=== PATIENT | female | born 1965 | race Caucasian/White ===

== ENCOUNTER 2024-06-23 20:18 | Emergency (ER) | payer OTHER ==
--- OUTSIDE RECORDS SUMMARY | 2024-06-23 20:24 | XMS REPORT | Continuity of Care Document ---
Author Name Unknown Address [address] [facility] [address]. [address] [place] [address] [facility] Address [address] [facility]. [address] [place] [address] Care Team Providers Care Type Casting Machine Operator Name Role Phone PCP, PATIENT DOES NOT HAVE A Primary Care Physic marci Unavailable SYSTEM, PROVIDER NOT IN Attending Clinician Unav ailable ALINA LAGUNAS Attending Clinician WILIAN Espinosa Attending Clinician Unavailable WING CORRAL Attending Clinician Unavailable CARMELA ÁLVAREZ Attending Clinician Unavailable JANNET BANG Attending Clinician UnavailDINO Flores Attending Clinician Unav ailable CASTRO HO Attending Clinician Unavailable TORI VALENTINE Attending Clinician Unavailable BHAVIN HERNANDES Attending Clinician Unavailable DIONE SOTO Attending Clinician Unavaila MELLISSA Brooks Attending Clinician Unavail able SHIRLEY MILLER Attending Clinician Unavailable CAMACHO COONEY Attending Clinician Unavailable LAURI JANSEN Attending Clinician UnavailJENNIFFER Herron Attending Clinician UnavailJAME Luu Attending Clinician Unavailable EVERETTE VALENZUELA Attending Clinician Unavailab YURI Reddy Attending Clinician Unavaila DYLAN Patel Attending Clinician Un available MILAN OSUNA Attending Clinician Unavailable AMINA BARRY Attending Clinician Unavailab ANGELIA Calles Attending Clinician UnavailKAYE Vizcarra Attending Clinician Unavailable CHARITO_Jody Attending Clinician Unavailab Maryanne Rothman Attending Clinician [phone] MARIELA RIVERAURIEL ASH Attending Clinician UnavailADAN Guardado Attending Clinician Unavailable MIHAEAL LEBLANC Attending Clinician Unavailable FEMI SEXTON Attending Clinician UnavailJANETTE Rogers Attending Clinician UnavailALINA Quinn Admitting Clinician Johnathan barajas [id number] Admitting Clinician UnavailCARMELA Villa Admitting Clinician Unavailable JANETTE DAVIDSON Admitting Clinician Unavaildesiree yusuf Payers Payer Name Policy Type Policy Number Effective Date [place]ati on Date [place] [facility] [id number]00 [place]IC[place] PART A AND B [id number] 2016 00:00:00 AETNA (POS) [id number] 2013 00:00:00 MEDICARE B-[place]: [employer] [id number] 2016 00:00:00 MEDICARE PART A \T\ B [id number] 2016 00:00[place]00 [place] [facility] [id number] 00:[place]00 Allergies, Adverse Reactions, Alerts Allergy Name Allergy Type Status Severity Reaction(s) Onset Date Inactive Date Treating Clinician Comments Source [facility] Active Low Hives 08-25 00:00: 00 MD Mine milligan [facility] Active Low Hives 08-25 00:00: 00 MD Mine milligan [facility] Active Low Hives 08-25 00:00: 00 MD [facility] mill[facility] Active Low Hives 08-25 00:00: 00 MD [facility]GR[facility]I Active Low Hives 08-25 00:00: 00 MD [facility] mill[facility] Active Low Hives 08-25 00:00: 00 MD [facility] Active Low Hives 08-25 00:00: 00 MD [facility] Active Low Hives 08-25 00:00: 00 MD [facility] Active Low Hives 08-25 00:00: 00 MD [facility] Active Low Hives 12 00:00: 00 MD [facility] Active Low Hives 0 12 00:00: 00 MD [facility] Active Low Hives 0 08-25 00:00: 00 MD Mine mill[facility] Active Low Hives 0 08-25 00:00: 00 MD Mine milligan [facility] Active Low Hives 0 08-25 00:00: 00 MD [facility] mill[facility] Active Low Hives 0 08-25 00:00: 00 MD Mine milligan [facility] Active Low Hives 0 08-25 00:00: 00 MD Mine milligan [facility] Active Low Hives 0 08-25 00:00: 00 MD Mine milligan [facility] Active Low Hives 0 08-25 00:00: 00 MD Mine milligan [facility]GR[facility]I Active Low Hives 0 08-25 00:00: 00 MD Mine milligan [facility]GR[facility]I Active Low Hives 0 08-25 00:00: 00 MD Mine milligan [facility]GR[facility]I Active Low Hives 0 08-25 00:00: 00 MD Mine milligan [facility] Active Low Hives 0 08-25 00:00: 00 MD Mine milligan [facility] Active Low Hives 0 08-25 00:00: 00 MD Mine milligan [facility] Active Low Hives 0 08-25 00:00: 00 MD Mine milligan [facility] Active Low Hives 0 08-25 00:00: 00 MD Mine mill[facility]GR[facility]I Active Low Hives 0 08-25 00:00: 00 MD Mine mill[facility] Active Low Hives 0 08-25 00:00: 00 MD [facility] mill[facility] Active Low Hives 0 08-25 00:00: 00 MD [facility] mill[facility] Active Low Hives 0 08-25 00:00: 00 MD [facility] mill[facility] Active Low Hives 0 08-25 00:00: 00 MD Mine milligan [facility] Active Low Hives 0 212 00:00: 00 MD Mine milligan [facility] Active Low Hives 0 12 00:00: 00 MD Mine milligan [facility] Active Low Hives 0 08-25 00:00: 00 MD Mine milligan [facility] Active Low Hives 0 08-25 00:00: 00 MD [facility] Active Low Hives 0 08-25 00:00: 00 MD Mine milligan [facility]GR[facility] Active Low Hives 0 08-25 00:00: 00 MD Mine milligan [facility] Active Low Hives 0 08-25 00:00: 00 MD [facility] mill[facility] Active Low Hives 0 08-25 00:00: 00 MD [facility] mill[facility]GR[facility] Active Low Hives 0 08-25 00:00: 00 MD [facility] mill[facility]GR[facility] Active Low Hives 0 08-25 00:00: 00 MD [facility] mill[facility] Active Low Hives 0 08-25 00:00: 00 MD Mine milligan [facility]GR[facility] Active Low Hives 0 08-25 00:00: 00 MD Mine milligan [facility]GR[facility] Active Low Hives 0 08-25 00:00: 00 MD Mine milligan [facility] Active Low Hives 0 08-25 00:00: 00 MD Mine milligan [facility]GR[facility]I Active Low Hives 0 08-25 00:00: 00 MD Mine milligan [facility]GR[facility]I Active Low Hives 0 08-25 00:00: 00 MD Mine milligan [facility]GR[facility] Active Low Hives 0 08-25 00:00: 00 MD Mine milligan [facility]GR[facility] Active Low Hives 0 08-25 00:00: 00 MD Mine milligan [facility]GR[facility]I Active Low Hives 0 08-25 00:00: 00 MD Mine milligan [facility]GR[facility]I Active Low Hives 0 08-25 00:00: 00 MD Mine milligan [facility] INGR[facility]I Active Low Hives 0 08-25 00:00: 00 MD Mine milligan [facility] Active Low Hives 0 212 00:00: 00 MD Mine milligan [facility] Active Low Hives 0 08-25 00:00: 00 MD Mine milligan [facility] Active Low Hives 0 08-25 00:00: 00 MD Mine milligan [facility] Active Low Hives 0 08-25 00:00: 00 MD Mine mliligan [facility]GR[facility]I Active Low Hives 0 08-25 00:00: 00 MD Mine milligan [facility]GR[facility] Active Low Hives 0 08-25 00:00: 00 MD Mine milligan [facility] Active Low Hives 0 08-25 00:00: 00 MD Mine milligan [facility]GR[facility]I Active Low Hives 0 08-25 00:00: 00 MD Mine milligan [facility]GR[facility] Active Low Hives 0 08-25 00:00: 00 MD Mine milligan [facility] [facility] Active Low Hives 0 08-25 00:00: 00 MD Mine milligan [facility]GR[facility]I Active Low Hives 0 08-25 00:00: 00 MD Mine milligan [facility] INGR[facility]I Active Low Hives 0 08-25 00:00: 00 MD Mine milligan [facility] Active Low Hives 0 08-25 00:00: 00 MD Mine milligan [facility]GR[facility] Active Low Hives 0 08-25 00:00: 00 MD Mine milligan [facility] Active Low Hives 0 08-25 00:00: 00 MD Mine milligan [facility] Active Low Hives 0 08-25 00:00: 00 MD Mine milligan [facility] Active Low Hives 0 08-25 00:00: 00 MD Mine milligan [facility] Active Low Hives 0 08-25 00:00: 00 MD Mine milligan [facility] Active Low Hives 0 08-25 00:00: 00 MD [facility] milligan [facility] Active Low Hives 0 08-25 00:00: 00 MD Mine milligan [facility] Active Low Hives 0 08-25 00:00: 00 MD Mine milligan [facility] Active Low Hives 20160 212 00:00: 00 MD Mine milligan [facility] Active Low Hives 0 212 00:00: 00 MD Mine milligan [facility] Active Low Hives 0 212 00:00: 00 MD Mine milligan [facility] Active Low Hives 0 212 00:00: 00 MD Mine milligan [facility]GR[facility] Active Low Hives 0 2 00:00: 00 MD Mine milligan [facility]GR[facility] Active Low Hives 0 2 00:00: 00 MD Mine milligan [facility]GR[facility] Active Low Hives 0 08-25 00:00: 00 MD Mine milligan [facility] Active Low Hives 0 08-25 00:00: 00 MD Mine milligan [facility]GR[facility]I Active Low Hives 0 2 00:00: 00 MD Mine milligan [facility] INGR[facility] Active Low Hives 0 08-25 00:00: 00 MD Mine milligan [facility] [facility]GR[facility] Active Low Hives 0 12 00:00: 00 MD Mine milligan [facility] INGR[facility]I Active Low Hives 0 12 00:00: 00 MD Mine milligan [facility]GR[facility] Active Low Hives 0 212 00:00: 00 MD Mine milligan [facility] INGR[facility] Active Low Hives 0 212 00:00: 00 MD Mine milligan [facility] INGR[facility] Active Low Hives 0 212 00:00: 00 MD Mine milligan [facility] INGR[facility] Active Low Hives 0 212 00:00: 00 MD Mine milligan [facility] INGREDI Active Low Hives 0 212 00:00: 00 MD Mine milligan [facility] INGR[facility]I Active Low Hives 0 212 00:00: 00 MD Mine milligan [facility] INGR[facility] Active Low Hives 0 212 00:00: 00 MD Mine milligan [facility] [facility]GR[facility] Active Low Hives 0 212 00:00: 00 MD Mine milligan [facility] INGR[facility]I Active Low Hives 0 212 00:00: 00 MD Mine milligan [facility] INGR[facility]I Active Low Hives 2016-0 212 00:00: 00 MD Mine milligan [facility] [facility]GR[facility] Active Low Hives 0 212 00:00: 00 MD Mine milligan [facility] INGR[facility]I Active Low Hives 0 212 00:00: 00 MD Mine milligan [facility] Active Low Hives 0 2 00:00: 00 MD Mine milligan [facility] INGR[facility] Active Low Hives 0 2 00:00: 00 MD Mine milligan [facility]GR[facility] Active Low Hives 0 08-25 00:00: 00 MD Mine milligan [facility] [facility]GR[facility] Active Low Hives 0 08-25 00:00: 00 MD Mine milligan [facility] INGR[facility] Active Low Hives 0 08-25 00:00: 00 MD Mine milligan [facility] [facility]GR[facility] Active Low Hives 0 08-25 00:00: 00 MD Mine milligan [facility] INGR[facility]I Active Low Hives 0 08-25 00:00: 00 MD Mine milligan [facility] INGR[facility]I Active Low Hives 0 08-25 00:00: 00 MD Mine milligan [facility] INGR[facility]I Active Low Hives 0 08-25 00:00: 00 MD Mine milligan [facility] INGR[facility]I Active Low Hives 0 08-25 00:00: 00 MD Mine milligan [facility] INGR[facility]I Active Low Hives 0 08-25 00:00: 00 MD Mine milligan [facility] INGR[facility]I Active Low Hives 0 08-25 00:00: 00 MD Mine milligan [facility] INGR[facility]I Active Low Hives 0 08-25 00:00: 00 MD Mine milligan [facility] INGR[facility]I Active Low Hives 0 212 00:00: 00 MD Mine milligan [facility] INGR[facility]I Active Low Hives 0 08-25 00:00: 00 MD Mine milligan [facility] INGR[facility]I Active Low Hives 0 08-25 00:00: 00 MD Mine milligan [facility] INGR[facility] Active Low Hives 0 2 00:00: 00 MD Mine milligan [facility] INGR[facility]I Active Low Hives 0 2-12 00:00: 00 MD Mine milligan [facility] INGR[facility] Active Low Hives 0 212 00:00: 00 MD Mine milligan [facility]GR[facility] Active Low Hives 0 212 00:00: 00 MD Mine milligan [facility]GR[facility] Active Low Hives 0 2 00:00: 00 MD Mine milligan [facility]GR[facility] Active Low Hives 0 2 00:00: 00 MD Mine milligan [facility]GR[facility] Active Low Hives 0 2 00:00: 00 MD Mine milligan [facility] INGR[facility]I Active Low Hives 0 08-25 00:00: 00 MD Mine milligan [facility]GR[facility] Active Low Hives 0 08-25 00:00: 00 MD Mine milligan [facility] INGR[facility] Active Low Hives 0 08-25 00:00: 00 MD Mine milligan [facility] INGR[facility] Active Low Hives 0 08-25 00:00: 00 MD Mine milligan [facility] INGR[facility]I Active Low Hives 0 08-25 00:00: 00 MD Mine milligan [facility] INGR[facility]I Active Low Hives 0 08-25 00:00: 00 MD Mine milligan [facility] INGR[facility]I Active Low Hives 0 08-25 00:00: 00 MD Mine milligan [facility] INGR[facility] Active Low Hives 0 2 00:00: 00 MD Mine milligan [facility] INGR[facility]I Active Low Hives 0 2 00:00: 00 MD Mine milligan [facility] INGR[facility]I Active Low Hives 0 08-25 00:00: 00 MD Mine milligan [facility] INGR[facility]I Active Low Hives 0 08-25 00:00: 00 MD Mine milligan [facility] INGR[facility] Active Low Hives 0 212 00:00: 00 MD Mine milligan [facility] INGR[facility]I Active Low Hives 0 08-25 00:00: 00 MD Mine milligan [facility] INGR[facility] Active Low Hives 0 2 00:00: 00 MD Mine milligan [facility] INGR[facility]I Active Low Hives 0 08-25 00:00: 00 MD Mine milligan [facility] INGR[facility]I Active Low Hives 0 212 00:00: 00 MD Mine milligan [facility] INGR[facility]I Active Low Hives 0 12 00:00: 00 MD Mine milligan [facility] INGR[facility] Active Low Hives 0 08-25 00:00: 00 MD Mine milligan [facility] INGR[facility]I Active Low Hives 0 08-25 00:00: 00 MD Mine milligan [facility] INGR[facility]I Active Low Hives 0 08-25 00:00: 00 MD Mine milligan [facility] INGR[facility]I Active Low Hives 0 08-25 00:00: 00 MD Mine milligan [facility] INGR[facility] Active Low Hives 0 08-25 00:00: 00 MD Mine milligan [facility] INGR[facility]I Active Low Hives 0 08-25 00:00: 00 MD Mine milligan [facility] INGR[facility]I Active Low Hives 0 08-25 00:00: 00 MD Mine milligan [facility] INGR[facility]I Active Low Hives 0 08-25 00:00: 00 MD Mine milligan [facility] INGR[facility]I Active Low Hives 0 08-25 00:00: 00 MD Mine milligan [facility] INGR[facility]I Active Low Hives 0 08-25 00:00: 00 MD Mine milligan [facility] INGR[facility]I Active Low Hives 0 08-25 00:00: 00 MD Mine milligan [facility] INGREDI Active Low Hives 0 08-25 00:00: 00 MD Mine milligan [facility] INGR[facility]I Active Low Hives 0 08-25 00:00: 00 MD Mine milligan [facility] INGR[facility]I Active Low Hives 0 08-25 00:00: 00 MD Mine milligan [facility] INGREDI Active Low Hives 0 08-25 00:00: 00 MD Mine milligan [facility] INGR[facility] Active Low Hives 0 08-25 00:00: 00 MD Mine milligan [facility] INGR[facility]I Active Low Hives 0 08-25 00:00: 00 MD Mine milligan [facility] INGR[facility]I Active Low Hives 0 08-25 00:00: 00 MD Mine milligan [facility] INGR[facility]I Active Low Hives 0 08-25 00:00: 00 MD Mine milligan [facility] INGR[facility] Active Low Hives 0 212 00:00: 00 MD Mine milligan [facility] INGR[facility] Active Low Hives 0 12 00:00: 00 MD Mine milligan [facility]GR[facility] Active Low Hives 0 08-25 00:00: 00 MD Mine milligan [facility] INGR[facility] Active Low Hives 0 08-25 00:00: 00 MD Mine milligan [facility]GR[facility] Active Low Hives 0 08-25 00:00: 00 MD Mine milligan [facility] Active Low Hives 0 08-25 00:00: 00 MD Mine milligan [facility]GR[facility] Active Low Hives 0 08-25 00:00: 00 MD Mine milligan [facility] Active Low Hives 0 08-25 00:00: 00 MD Mine milligan [facility] [facility]GR[facility] Active Low Hives 0 08-25 00:00: 00 MD Mine milligan [facility] INGR[facility] Active Low Hives 0 08-25 00:00: 00 MD Mine milligan [facility] INGR[facility] Active Low Hives 0 08-25 00:00: 00 MD Mine milligan [facility] INGR[facility] Active Low Hives 0 08-25 00:00: 00 MD Mine milligan [facility] INGR[facility] Active Low Hives 0 08-25 00:00: 00 MD Mine milligan [facility] INGR[facility]I Active Low Hives 0 08-25 00:00: 00 MD Mine milligan [facility]GR[facility] Active Low Hives 0 08-25 00:00: 00 MD Mine milligan [facility] INGR[facility] Active Low Hives 0 08-25 00:00: 00 MD Mine milligan [facility] INGR[facility] Active Low Hives 0 08-25 00:00: 00 MD Mine milligan [facility] INGR[facility] Active Low Hives 0 08-25 00:00: 00 MD Mine milligan [facility] INGR[facility] Active Low Hives 0 08-25 00:00: 00 MD Mine milligan [facility] INGR[facility] Active Low Hives 0 08-25 00:00: 00 MD Mine milligan [facility] INGR[facility] Active Low Hives 0 08-25 00:00: 00 MD Mine milligan [facility] INGR[facility] Active Low Hives 0 212 00:00: 00 MD Mine milligan [facility] INGRED[facility] Active Low Hives 0 08-25 00:00: 00 MD Mine milligan [facility] INGR[facility] Active Low Hives 0 08-25 00:00: 00 MD Mine milligan [facility] INGR[facility] Active Low Hives 0 08-25 00:00: 00 MD Mine milligan [facility] INGR[facility] Active Low Hives 0 08-25 00:00: 00 MD Mine milligan [facility] INGR[facility] Active Low Hives 0 08-25 00:00: 00 MD Mine milligan [facility] INGR[facility] Active Low Hives 0 08-25 00:00: 00 MD Mine milligan [facility] INGR[facility]I Active Low Hives 0 08-25 00:00: 00 MD Mine milligan [facility] INGR[facility] Active Low Hives 0 08-25 00:00: 00 MD Mine milligan [facility] INGR[facility]I Active Low Hives 0 08-25 00:00: 00 MD Mine milligan [facility] INGR[facility]I Active Low Hives 0 08-25 00:00: 00 MD Mine milligan [facility] INGR[facility]I Active Low Hives 0 08-25 00:00: 00 MD Mine milligan [facility] INGREDI Active Low Hives 0 08-25 00:00: 00 MD Mine milligan [facility] INGR[facility]I Active Low Hives 0 08-25 00:00: 00 MD Mine milligan [facility] INGREDI Active Low Hives 0 08-25 00:00: 00 MD Mine milligan [facility] INGREDI Active Low Hives 0 08-25 00:00: 00 MD Mine milligan [facility] INGR[facility]I Active Low Hives 0 08-25 00:00: 00 MD Mine milligan [facility] INGR[facility] Active Low Hives 0 08-25 00:00: 00 MD Mine milligan [facility] INGR[facility]I Active Low Hives 0 08-25 00:00: 00 MD Mine milligan [facility] INGR[facility] Active Low Hives 0 08-25 00:00: 00 MD Mine milligan [facility] INGR[facility]I Active Low Hives 0 08-25 00:00: 00 MD Mine milligan [facility] INGR[facility]I Active Low Hives 20160 212 00:00: 00 MD Mine milligan [facility] INGR[facility] Active Low Hives 0 212 00:00: 00 MD Mine milligan [facility] INGR[facility] Active Low Hives 0 212 00:00: 00 MD Mine milligan [facility] INGR[facility] Active Low Hives 0 212 00:00: 00 MD Mine milligan [facility] INGR[facility] Active Low Hives 0 2 00:00: 00 MD Mine milligan [facility] INGR[facility] Active Low Hives 0 2 00:00: 00 MD Mine milligan [facility] Active Low Hives 0 08-25 00:00: 00 MD Mine milligan [facility] INGR[facility] Active Low Hives 0 08-25 00:00: 00 MD Mine milligan [facility] INGR[facility] Active Low Hives 0 2 00:00: 00 MD Mine milligan [facility] INGR[facility] Active Low Hives 0 08-25 00:00: 00 MD Mine milligan [facility] INGR[facility] Active Low Hives 0 12 00:00: 00 MD Mine milligan [facility] INGR[facility] Active Low Hives 0 12 00:00: 00 MD Mine milligan [facility] INGR[facility] Active Low Hives 0 212 00:00: 00 MD Mine milligan [facility] INGR[facility] Active Low Hives 0 212 00:00: 00 MD Mine milligan [facility] INGR[facility] Active Low Hives 0 212 00:00: 00 MD Mine milligan [facility] INGREDI Active Low Hives 0 212 00:00: 00 MD Mine milligan [facility] INGR[facility] Active Low Hives 0 212 00:00: 00 MD Mine milligan [facility] INGR[facility]I Active Low Hives 0 212 00:00: 00 MD Mine milligan [facility] INGR[facility]I Active Low Hives 0 212 00:00: 00 MD Mine milligan [facility] INGR[facility] Active Low Hives 0 212 00:00: 00 MD Mine milligan [facility] INGR[facility] Active Low Hives 0 212 00:00: 00 MD Mine milligan [facility] INGR[facility] Active Low Hives 2016-0 212 00:00: 00 MD Mine milligan [facility] INGR[facility] Active Low Hives 0 212 00:00: 00 MD Mine milligan [facility] INGR[facility]I Active Low Hives 0 212 00:00: 00 MD Mine milligan [facility] INGR[facility]I Active Low Hives 0 2 00:00: 00 MD Mine milligan [facility] INGR[facility]I Active Low Hives 0 2 00:00: 00 MD Mine milligan [facility] INGR[facility] Active Low Hives 0 08-25 00:00: 00 MD [facility] milligan [facility] INGR[facility] Active Low Hives 0 08-25 00:00: 00 MD Mine milligan [facility] INGR[facility]I Active Low Hives 0 08-25 00:00: 00 MD [facility] milligan [facility] INGR[facility]I Active Low Hives 0 08-25 00:00: 00 MD [facility] milligan [facility] INGR[facility]I Active Low Hives 0 08-25 00:00: 00 MD [facility] milligan [facility] INGR[facility]I Active Low Hives 0 08-25 00:00: 00 MD Mine milligan [facility] INGREDI Active Low Hives 0 08-25 00:00: 00 MD Mine milligan [facility] INGR[facility]I Active Low Hives 0 08-25 00:00: 00 MD Mine milligan [facility] INGR[facility]I Active Low Hives 0 08-25 00:00: 00 MD Mine milligan [facility] INGR[facility]I Active Low Hives 0 08-25 00:00: 00 MD [facility] milligan [facility] INGREDI Active Low Hives 0 08-25 00:00: 00 MD Mine milligan [facility] INGR[facility]I Active Low Hives 0 212 00:00: 00 MD [facility] milligan [facility] INGREDI Active Low Hives 0 08-25 00:00: 00 MD [facility] milligan [facility] INGREDI Active Low Hives 0 08-25 00:00: 00 MD [facility] milligan [facility] INGR[facility] Active Low Hives 0 2 00:00: 00 MD [facility] milligan [facility] INGR[facility]I Active Low Hives 0 2-12 00:00: 00 MD Mine milligan [facility] INGR[facility]I Active Low Hives 0 212 00:00: 00 MD Mine milligan [facility] INGR[facility]I Active Low Hives 0 212 00:00: 00 MD Mine milliagn [facility] INGREDI Active Low Hives 0 2 00:00: 00 MD Mine milligan [facility] INGREDI Active Low Hives 0 2 00:00: 00 MD [facility] milligan [facility] INGREDI Active Low Hives 0 2 00:00: 00 MD Mine milligan [facility] INGR[facility]I Active Low Hives 0 08-25 00:00: 00 MD Mine milligan [facility] INGR[facility]I Active Low Hives 0 08-25 00:00: 00 MD Mine milligan [facility] INGREDI Active Low Hives 0 08-25 00:00: 00 MD Mine milligan [facility] INGREDI Active Low Hives 0 08-25 00:00: 00 MD [facility] milligan [facility] INGR[facility]I Active Low Hives 0 08-25 00:00: 00 MD [facility] milligan [facility] INGR[facility]I Active Low Hives 0 08-25 00:00: 00 MD Mine milligan [facility] INGREDI Active Low Hives 0 08-25 00:00: 00 MD [facility] milligan [facility] INGR[facility] Active Low Hives 0 2 00:00: 00 MD [facility] milligan [facility] INGREDI Active Low Hives 0 2 00:00: 00 MD [facility] milligan [facility] INGREDI Active Low Hives 0 08-25 00:00: 00 MD [facility] milligan [facility] INGREDI Active Low Hives 0 08-25 00:00: 00 MD [facility] milligan [facility] INGREDI Active Low Hives 0 212 00:00: 00 MD [facility] mill[facility] INGREDI Active Low Hives 0 08-25 00:00: 00 MD [facility] mill[facility] INGREDI Active Low Hives 0 2 00:00: 00 MD [facility] milligan [facility] INGREDI Active Low Hives 0 08-25 00:00: 00 MD [facility] milligan [facility] INGREDI Active Low Hives 0 212 00:00: 00 MD Mine milligan [facility] INGREDI Active Low Hives 0 12 00:00: 00 MD Mine milligan [facility] INGREDI Active Low Hives 0 08-25 00:00: 00 MD Mine milligan [facility] INGREDI Active Low Hives 0 08-25 00:00: 00 MD Mine milligan [facility] INGREDI Active Low Hives 0 08-25 00:00: 00 MD Mine milligan [facility] INGREDI Active Low Hives 0 08-25 00:00: 00 MD Mine milligan [facility] INGREDI Active Low Hives 0 08-25 00:00: 00 MD [facility] mill[facility] INGREDI Active Low Hives 0 08-25 00:00: 00 MD [facility] mill[facility] INGREDI Active Low Hives 0 08-25 00:00: 00 MD [facility] mill[facility] INGREDI Active Low Hives 0 08-25 00:00: 00 MD [facility] mill[facility] INGREDI Active Low Hives 0 08-25 00:00: 00 MD [facility] mill[facility] INGREDI Active Low Hives 0 08-25 00:00: 00 MD [facility] milligan [facility] INGREDI Active Low Hives 0 08-25 00:00: 00 MD [facility] milligan [facility] INGREDI Active Low Hives 0 08-25 00:00: 00 MD [facility] milligan [facility] INGREDI Active Low Hives 0 08-25 00:00: 00 MD [facility] milligan [facility] INGREDI Active Low Hives 0 08-25 00:00: 00 MD [facility] mill[facility] INGREDI Active Low Hives 0 08-25 00:00: 00 MD [facility] mill[facility] INGREDI Active Low Hives 0 08-25 00:00: 00 MD [facility] mill[facility] INGREDI Active Low Hives 0 08-25 00:00: 00 MD [facility] mill[facility] INGREDI Active Low Hives 0 08-25 00:00: 00 MD [facility] mill[facility] INGREDI Active Low Hives 0 08-25 00:00: 00 MD [facility] mill[facility] INGREDI Active Low Hives 0 212 00:00: 00 MD [facility] mill[facility] INGREDI Active Low Hives 0 12 00:00: 00 MD [facility] mill[facility] INGREDI Active Low Hives 0 08-25 00:00: 00 MD [facility] mill[facility] INGREDI Active Low Hives 0 08-25 00:00: 00 MD [facility] mill[facility] INGREDI Active Low Hives 0 08-25 00:00: 00 MD [facility] milligan [facility] INGREDI Active Low Hives 0 08-25 00:00: 00 MD [facility] mill[facility] INGREDI Active Low Hives 0 08-25 00:00: 00 MD [facility] mill[facility] [employer] INGREDI Active Low Hives 0 08-25 00:00: 00 MD Mine milligan [employer] INGREDI Active Low Hives 0 08-25 00:00: 00 MD Mine milligan [employer] INGREDI Active Low Hives 0 08-25 00:00: 00 MD Mine milligan [employer] INGREDI Active Low Hives 0 08-25 00:00: 00 MD Mine milligan [employer] INGREDI Active Low Hives 0 08-25 00:00: 00 MD Mine milligan [employer] INGREDI Active Low Hives 0 08-25 00:00: 00 MD Mine milligan [employer] INGREDI Active Low Hives 0 08-25 00:00: 00 MD Mine milligan [employer] INGREDI Active Low Hives 0 08-25 00:00: 00 MD Mine milligan [employer] INGREDI Active Low Hives 0 08-25 00:00: 00 MD [facility] INGREDI Active Low Hives 0 08-25 00:00: 00 MD Mine milligan [facility] INGREDI Active Low Hives 0 08-25 00:00: 00 MD [facility] mill[facility] DR[employer] INGREDI Active Low Hives 0 08-25 00:00: 00 MD [facility] mill[facility]IRIN DRUG INGREDI Active Low Hives 0 08-25 00:00: 00 MD [facility] mill[facility]IRIN DRUG INGREDI Active Low Hives 0 08-25 00:00: 00 MD Mine milligan [facility]IRIN DRUG INGREDI Active Low Hives 0 212 00:00: 00 MD [facility] mill[facility]IRIN DRUG INGREDI Active Low Hives 0 212 00:00: 00 MD [facility] mill[facility]IRIN DRUG INGREDI Active Low Hives 0 2 00:00: 00 MD [facility] mill[facility]IRIN DRUG INGREDI Active Low Hives 0 2 00:00: 00 MD [facility] mill[facility]IRIN DRUG INGREDI Active Low Hives 0 08-25 00:00: 00 MD [facility] mill[facility]IR[facility] DRUG INGREDI Active Low Hives 0 08-25 00:00: 00 MD [facility] mill[facility]IRIN DRUG INGREDI Active Low Hives 0 08-25 00:00: 00 MD [facility] mill[facility]IRIN DRUG INGREDI Active Low Hives 0 08-25 00:00: 00 MD [facility] milligan [facility]IRIN DRUG INGREDI Active Low Hives 0 2 00:00: 00 MD [facility] mill[facility]IRIN DRUG INGREDI Active Low Hives 0 08-25 00:00: 00 MD [facility] mill[facility]IRIN DRUG INGREDI Active Low Hives 0 08-25 00:00: 00 MD [facility] mill[facility]IRIN DRUG INGREDI Active Low Hives 0 08-25 00:00: 00 MD [facility] mill[facility]IR[facility] DRUG INGREDI Active Low Hives 0 08-25 00:00: 00 MD Mine milligan [facility]IRIN DRUG INGREDI Active Low Hives 0 08-25 00:00: 00 MD Mine milligan [facility]IRIN DRUG INGREDI Active Low Hives 0 2 00:00: 00 MD [facility] mill[facility]IRIN DRUG INGREDI Active Low Hives 0 08-25 00:00: 00 MD [facility] mill[facility] DRUG INGREDI Active Low Hives 0 2 00:00: 00 MD [facility] mill[facility]IN DRUG INGREDI Active Low Hives 0 08-25 00:00: 00 MD [facility] mill[facility] DR[employer] INGREDI Active Low Hives 0 08-25 00:00: 00 MD [facility] milligan [employer] [employer] INGREDI Active Low Hives 0 2 00:00: 00 MD Mine milligan ASA-ACET AMINOPHE N-SALICY L-CAFF DRUG Active 01-30 00:00: 00 MD Mine milligan ASA-ACET AMINOPHE N-SALICY L-CAFF DRUG Active 01-30 00:00: 00 MD [facility] milligan ASA-ACET AMINOPHE N-SALICY L-CAFF DRUG Active 01-30 00:00: 00 MD Mine milligan ASA-ACET AMINOPHE N-SALICY L-CAFF DRUG Active 01-30 00:00: 00 MD [facility] milligan ASA-ACET AMINOPHE N-SALICY L-CAFF DRUG Active 01-30 00:00: 00 MD Mine milligan ASA-ACET AMINOPHE N-SALICY L-CAFF DRUG Active 01-30 00:00: 00 MD [facility] milligan ASA-ACET AMINOPHE N-SALICY L-CAFF DRUG Active 01-30 00:00: 00 MD [facility] milligan ASA-ACET AMINOPHE N-SALICY L-CAFF DRUG Active 01-30 00:00: 00 MD Mine milligan ASA-ACET AMINOPHE N-SALICY L-CAFF DRUG Active 01-30 00:00: 00 MD [facility] milligan ASA-ACET AMINOPHE N-SALICY L-CAFF DRUG Active 01-30 00:00: 00 MD [facility] milligan ASA-ACET AMINOPHE N-SALICY L-CAFF DRUG Active 01-30 00:00: 00 MD [facility] milligan ASA-ACET AMINOPHE N-SALICY L-CAFF DRUG Active 01-30 00:00: 00 MD Mine milligan ASA-ACET AMINOPHE N-SALICY L-CAFF DRUG Active 01-30 00:00: 00 MD Mine milligan ASA-ACET AMINOPHE N-SALICY L-CAFF DRUG Active 01-30 00:00: 00 MD [facility] milligan ASA-ACET AMINOPHE N-SALICY L-CAFF DRUG Active 01-30 00:00: 00 MD Mine milligan ASA-ACET AMINOPHE N-SALICY L-CAFF DRUG Active 01-30 00:00: 00 MD Mine milligan ASA-ACET AMINOPHE N-SALICY L-CAFF DRUG Active 01-30 00:00: 00 MD [facility] milligan ASA-ACET AMINOPHE N-SALICY L-CAFF DRUG Active 01-30 00:00: 00 MD Mine milligan ASA-ACET AMINOPHE N-SALICY L-CAFF DRUG Active 01-30 00:00: 00 MD Mine milligan ASA-ACET AMINOPHE N-SALICY L-CAFF DRUG Active 01-30 00:00: 00 MD [facility] milligan ASA-ACET AMINOPHE N-SALICY L-CAFF DRUG Active 01-30 00:00: 00 MD [facility] milligan ASA-ACET AMINOPHE N-SALICY L-CAFF DRUG Active 01-30 00:00: 00 MD [facility] milligan ASA-ACET AMINOPHE N-SALICY L-CAFF DRUG Active 01-30 00:00: 00 MD Mine milligan ASA-ACET AMINOPHE N-SALICY L-CAFF DRUG Active 01-30 00:00: 00 MD [facility] milligan ASA-ACET AMINOPHE N-SALICY L-CAFF DRUG Active 01-30 00:00: 00 MD [facility] milligan ASA-ACET AMINOPHE N-SALICY L-CAFF DRUG Active 01-30 00:00: 00 MD [facility] milligan ASA-ACET AMINOPHE N-SALICY L-CAFF DRUG Active 01-30 00:00: 00 MD [facility] milligan ASA-ACET AMINOPHE N-SALICY L-CAFF DRUG Active 01-30 00:00: 00 MD [facility] milligan ASA-ACET AMINOPHE N-SALICY L-CAFF DRUG Active 01-30 00:00: 00 MD [facility] milligan ASA-ACET AMINOPHE N-SALICY L-CAFF DRUG Active 01-30 00:00: 00 MD [facility] milligan ASA-ACET AMINOPHE N-SALICY L-CAFF DRUG Active 01-30 00:00: 00 MD [facility] milligan ASA-ACET AMINOPHE N-SALICY L-CAFF DRUG Active 01-30 00:00: 00 MD [facility] milligan ASA-ACET AMINOPHE N-SALICY L-CAFF DRUG Active 01-30 00:00: 00 MD Mine milligan ASA-ACET AMINOPHE N-SALICY L-CAFF DRUG Active 01-30 00:00: 00 MD [facility] milligan ASA-ACET AMINOPHE N-SALICY L-CAFF DRUG Active 01-30 00:00: 00 MD [facility] milligan ASA-ACET AMINOPHE N-SALICY L-CAFF DRUG Active 01-30 00:00: 00 MD [facility] milligan ASA-ACET AMINOPHE N-SALICY L-CAFF DRUG Active 01-30 00:00: 00 MD Mine milligan ASA-ACET AMINOPHE N-SALICY L-CAFF DRUG Active 01-30 00:00: 00 MD [facility] milligan ASA-ACET AMINOPHE N-SALICY L-CAFF DRUG Active 01-30 00:00: 00 MD [facility] milligan ASA-ACET AMINOPHE N-SALICY L-CAFF DRUG Active 01-30 00:00: 00 MD [facility] milligan ASA-ACET AMINOPHE N-SALICY L-CAFF DRUG Active 01-30 00:00: 00 MD [facility] milligan ASA-ACET AMINOPHE N-SALICY L-CAFF DRUG Active 01-30 00:00: 00 MD [facility] mill[facility] ASA-ACET AMINOPHE N-SALICY L-CAFF DRUG Active 01-30 00:00: 00 MD [facility] mill[facility] ASA-ACET AMINOPHE N-SALICY L-CAFF DRUG Active 01-30 00:00: 00 MD [facility] milligan ASA-ACET AMINOPHE N-SALICY L-CAFF DRUG Active 01-30 00:00: 00 MD [facility] milligan ASA-ACET AMINOPHE N-SALICY L-CAFF DRUG Active 01-30 00:00: 00 MD [facility] milligan ASA-ACET AMINOPHE N-SALICY L-CAFF DRUG Active 01-30 00:00: 00 MD [facility] mill[facility] ASA-ACET AMINOPHE N-SALICY L-CAFF DRUG Active 01-30 00:00: 00 MD [facility] milligan ASA-ACET AMINOPHE N-SALICY L-CAFF DRUG Active 01-30 00:00: 00 MD [facility] milligan ASA-ACET AMINOPHE N-SALICY L-CAFF DRUG Active 01-30 00:00: 00 MD [facility] milligan ASA-ACET AMINOPHE N-SALICY L-CAFF DRUG Active 01-30 00:00: 00 MD [facility] milligan ASA-ACET AMINOPHE N-SALICY L-CAFF DRUG Active 01-30 00:00: 00 MD [facility] milligan ASA-ACET AMINOPHE N-SALICY L-CAFF DRUG Active 01-30 00:00: 00 MD [facility] milligan ASA-ACET AMINOPHE N-SALICY L-CAFF DRUG Active 01-30 00:00: 00 MD [facility] mill[facility] ASA-ACET AMINOPHE N-SALICY L-CAFF DRUG Active 01-30 00:00: 00 MD [facility] milligan ASA-ACET AMINOPHE N-SALICY L-CAFF DRUG Active 01-30 00:00: 00 MD [facility] milligan ASA-ACET AMINOPHE N-SALICY L-CAFF DRUG Active 01-30 00:00: 00 MD [facility] milligan ASA-ACET AMINOPHE N-SALICY L-CAFF DRUG Active 01-30 00:00: 00 MD [facility] mill[facility] ASA-ACET AMINOPHE N-SALICY L-CAFF DRUG Active 01-30 00:00: 00 MD [facility] milligan ASA-ACET AMINOPHE N-SALICY L-CAFF DRUG Active 01-30 00:00: 00 MD [facility] mill[facility] ASA-ACET AMINOPHE N-SALICY L-CAFF DRUG Active 01-30 00:00: 00 MD [facility] milligan ASA-ACET AMINOPHE N-SALICY L-CAFF DRUG Active 01-30 00:00: 00 MD [facility] milligan ASA-ACET AMINOPHE N-SALICY L-CAFF DRUG Active 01-30 00:00: 00 MD [facility] mill[facility] ASA-ACET AMINOPHE N-SALICY L-CAFF DRUG Active 01-30 00:00: 00 MD [facility] milligan ASA-ACET AMINOPHE N-SALICY L-CAFF DRUG Active 01-30 00:00: 00 MD [facility] mill[facility] ASA-ACET AMINOPHE N-SALICY L-CAFF DRUG Active 01-30 00:00: 00 MD [facility] mill[facility] ASA-ACET AMINOPHE N-SALICY L-CAFF DRUG Active 01-30 00:00: 00 MD [facility] ASA-ACET AMINOPHE N-SALICY L-CAFF DRUG Active 01-30 00:00: 00 MD [facility] ASA-ACET AMINOPHE N-SALICY L-CAFF DRUG Active 01-30 00:00: 00 MD [facility] mill[facility] ASA-ACET AMINOPHE N-SALICY L-CAFF DRUG Active 01-30 00:00: 00 MD [facility] ASA-ACET AMINOPHE N-SALICY L-CAFF DRUG Active 01-30 00:00: 00 MD [facility] ASA-ACET AMINOPHE N-SALICY L-CAFF DRUG Active 01-30 00:00: 00 MD [facility] ASA-ACET AMINOPHE N-SALICY L-CAFF DRUG Active 01-30 00:00: 00 MD [facility] ASA-ACET AMINOPHE N-SALICY L-CAFF DRUG Active 01-30 00:00: 00 MD [facility] ASA-ACET AMINOPHE N-SALICY L-CAFF DRUG Active 01-30 00:00: 00 MD [facility] ASA-ACET AMINOPHE N-SALICY L-CAFF DRUG Active 01-30 00:00: 00 MD [facility] ASA-ACET AMINOPHE N-SALICY L-CAFF DRUG Active 01-30 00:00: 00 MD [facility] ASA-ACET AMINOPHE N-SALICY L-CAFF DRUG Active 01-30 00:00: 00 MD [facility] mill[facility] ASA-ACET AMINOPHE N-SALICY L-CAFF DRUG Active 01-30 00:00: 00 MD [facility] mill[facility] ASA-ACET AMINOPHE N-SALICY L-CAFF DRUG Active 01-30 00:00: 00 MD [facility] mill[facility] ASA-ACET AMINOPHE N-SALICY L-CAFF DRUG Active 01-30 00:00: 00 MD [facility] ASA-ACET AMINOPHE N-SALICY L-CAFF DRUG Active 01-30 00:00: 00 MD [facility] mill[facility] ASA-ACET AMINOPHE N-SALICY L-CAFF DRUG Active 01-30 00:00: 00 MD [facility] mill[facility] ASA-ACET AMINOPHE N-SALICY L-CAFF DRUG Active 01-30 00:00: 00 MD [facility] mill[facility] ASA-ACET AMINOPHE N-SALICY L-CAFF DRUG Active 01-30 00:00: 00 MD [facility] mill[facility] ASA-ACET AMINOPHE N-SALICY L-CAFF DRUG Active 01-30 00:00: 00 MD [facility] milligan ASA-ACET AMINOPHE N-SALICY L-CAFF DRUG Active 01-30 00:00: 00 MD [facility] milligan ASA-ACET AMINOPHE N-SALICY L-CAFF DRUG Active 01-30 00:00: 00 MD [facility] ASA-ACET AMINOPHE N-SALICY L-CAFF DRUG Active 01-30 00:00: 00 MD [facility] ASA-ACET AMINOPHE N-SALICY L-CAFF DRUG Active 01-30 00:00: 00 MD [facility] ASA-ACET AMINOPHE N-SALICY L-CAFF DRUG Active 01-30 00:00: 00 MD [facility] mill[facility] ASA-ACET AMINOPHE N-SALICY L-CAFF DRUG Active 01-30 00:00: 00 MD [facility] mill[facility] ASA-ACET AMINOPHE N-SALICY L-CAFF DRUG Active 01-30 00:00: 00 MD [facility] mill[facility] ASA-ACET AMINOPHE N-SALICY L-CAFF DRUG Active 01-30 00:00: 00 MD [facility] milligan ASA-ACET AMINOPHE N-SALICY L-CAFF DRUG Active 01-30 00:00: 00 MD [facility] mill[facility] ASA-ACET AMINOPHE N-SALICY L-CAFF DRUG Active 01-30 00:00: 00 MD Mine milligan ACETAMIN OPHEN-SA LICYLAMI D-CAFF DRUG Active Unknown-Cmnt 01-30 00:00: 00 [facility] ASA-ACET AMINOPHE N-SALICY L-CAFF DRUG Active 01-30 00:00: 00 MD [facility] milligan ASA-ACET AMINOPHE N-SALICY L-CAFF DRUG Active 01-30 00:00: 00 MD [facility] milligan ASA-ACET AMINOPHE N-SALICY L-CAFF DRUG Active 01-30 00:00: 00 MD [facility] milligan ASA-ACET AMINOPHE N-SALICY L-CAFF DRUG Active 01-30 00:00: 00 MD [facility] milligan ASA-ACET AMINOPHE N-SALICY L-CAFF DRUG Active 01-30 00:00: 00 MD [facility] mill[facility] ASA-ACET AMINOPHE N-SALICY L-CAFF DRUG Active 01-30 00:00: 00 MD [facility] mill[facility] ASA-ACET AMINOPHE N-SALICY L-CAFF DRUG Active 01-30 00:00: 00 MD [facility] milligan ASA-ACET AMINOPHE N-SALICY L-CAFF DRUG Active 01-30 00:00: 00 MD [facility] mill[facility] ASA-ACET AMINOPHE N-SALICY L-CAFF DRUG Active 01-30 00:00: 00 MD [facility] mill[facility] ASA-ACET AMINOPHE N-SALICY L-CAFF DRUG Active 01-30 00:00: 00 MD [facility] milligan ASA-ACET AMINOPHE N-SALICY L-CAFF DRUG Active 01-30 00:00: 00 MD [facility] milligan ASA-ACET AMINOPHE N-SALICY L-CAFF DRUG Active 01-30 00:00: 00 MD [facility] mill[facility] ASA-ACET AMINOPHE N-SALICY L-CAFF DRUG Active 01-30 00:00: 00 MD [facility] milligan ASA-ACET AMINOPHE N-SALICY L-CAFF DRUG Active 01-30 00:00: 00 MD [facility] milligan ASA-ACET AMINOPHE N-SALICY L-CAFF DRUG Active 01-30 00:00: 00 MD [facility] milligan ASA-ACET AMINOPHE N-SALICY L-CAFF DRUG Active 01-30 00:00: 00 MD [facility] mill[facility] ASA-ACET AMINOPHE N-SALICY L-CAFF DRUG Active 01-30 00:00: 00 MD [facility] ASA-ACET AMINOPHE N-SALICY L-CAFF DRUG Active 01-30 00:00: 00 MD [facility] mill[facility] ASA-ACET AMINOPHE N-SALICY L-CAFF DRUG Active 01-30 00:00: 00 MD [facility] mill[facility] ASA-ACET AMINOPHE N-SALICY L-CAFF DRUG Active 01-30 00:00: 00 MD [facility] mill[facility] ASA-ACET AMINOPHE N-SALICY L-CAFF DRUG Active 01-30 00:00: 00 MD [facility] ASA-ACET AMINOPHE N-SALICY L-CAFF DRUG Active 01-30 00:00: 00 MD [facility] mill[facility] ASA-ACET AMINOPHE N-SALICY L-CAFF DRUG Active 01-30 00:00: 00 MD [facility] mill[facility] ASA-ACET AMINOPHE N-SALICY L-CAFF DRUG Active 01-30 00:00: 00 MD [facility] mill[facility] ASA-ACET AMINOPHE N-SALICY L-CAFF DRUG Active 01-30 00:00: 00 MD [facility] ASA-ACET AMINOPHE N-SALICY L-CAFF DRUG Active 01-30 00:00: 00 MD [facility] mill[facility] ASA-ACET AMINOPHE N-SALICY L-CAFF DRUG Active 01-30 00:00: 00 MD [facility] mill[facility] ASA-ACET AMINOPHE N-SALICY L-CAFF DRUG Active 01-30 00:00: 00 MD [facility] mill[facility] ASA-ACET AMINOPHE N-SALICY L-CAFF DRUG Active 01-30 00:00: 00 MD [facility] mill[facility] ASA-ACET AMINOPHE N-SALICY L-CAFF DRUG Active 01-30 00:00: 00 MD [facility] mill[facility] ASA-ACET AMINOPHE N-SALICY L-CAFF DRUG Active 01-30 00:00: 00 MD [facility] milligan ASA-ACET AMINOPHE N-SALICY L-CAFF DRUG Active 01-30 00:00: 00 MD [facility] milligan ASA-ACET AMINOPHE N-SALICY L-CAFF DRUG Active 01-30 00:00: 00 MD [facility] milligan ASA-ACET AMINOPHE N-SALICY L-CAFF DRUG Active 01-30 00:00: 00 MD [facility] milligan ASA-ACET AMINOPHE N-SALICY L-CAFF DRUG Active 01-30 00:00: 00 MD [facility] milligan ASA-ACET AMINOPHE N-SALICY L-CAFF DRUG Active Other 01-30 00:00: 00 MD [facility] milligan ASA-ACET AMINOPHE N-SALICY L-CAFF DRUG Active Other 01-30 00:00: 00 MD [facility] milligan ASA-ACET AMINOPHE N-SALICY L-CAFF DRUG Active Other 01-30 00:00: 00 MD [facility] milligan ASA-ACET AMINOPHE N-SALICY L-CAFF DRUG Active Other 01-30 00:00: 00 MD [facility] ASA-ACET AMINOPHE N-SALICY L-CAFF DRUG Active Other 01-30 00:00: 00 MD [facility] ASA-ACET AMINOPHE N-SALICY L-CAFF DRUG Active Other 01-30 00:00: 00 MD [facility] ASA-ACET AMINOPHE N-SALICY L-CAFF DRUG Active Other 01-30 00:00: 00 MD [facility] ASA-ACET AMINOPHE N-SALICY L-CAFF DRUG Active Other 01-30 00:00: 00 MD [facility] ASA-ACET AMINOPHE N-SALICY L-CAFF DRUG Active Other 01-30 00:00: 00 MD [facility] ASA-ACET AMINOPHE N-SALICY L-CAFF DRUG Active Other 0 01-30 00:00: 00 MD [facility] ASA-ACET AMINOPHE N-SALICY L-CAFF DRUG Active Other 0 01-30 00:00: 00 MD [facility] ASA-ACET AMINOPHE N-SALICY L-CAFF DRUG Active Other 0 01-30 00:00: 00 MD [facility] ASA-ACET AMINOPHE N-SALICY L-CAFF DRUG Active Other 0 01-30 00:00: 00 MD [facility] ASA-ACET AMINOPHE N-SALICY L-CAFF DRUG Active Other 0 01-30 00:00: 00 MD [facility] ASA-ACET AMINOPHE N-SALICY L-CAFF DRUG Active Other 0 01-30 00:00: 00 MD [facility] ASA-ACET AMINOPHE N-SALICY L-CAFF DRUG Active Other 0 01-30 00:00: 00 MD [facility] ASA-ACET AMINOPHE N-SALICY L-CAFF DRUG Active Other 0 01-30 00:00: 00 MD [facility] ASA-ACET AMINOPHE N-SALICY L-CAFF DRUG Active Other 0 01-30 00:00: 00 MD [facility] ASA-ACET AMINOPHE N-SALICY L-CAFF DRUG Active Other 0 01-30 00:00: 00 MD [facility] ASA-ACET AMINOPHE N-SALICY L-CAFF DRUG Active Other 0 01-30 00:00: 00 MD [facility] ASA-ACET AMINOPHE N-SALICY L-CAFF DRUG Active Other 0 01-30 00:00: 00 MD [facility] ASA-ACET AMINOPHE N-SALICY L-CAFF DRUG Active Other 0 01-30 00:00: 00 MD [facility] ASA-ACET AMINOPHE N-SALICY L-CAFF DRUG Active Other 0 01-30 00:00: 00 MD [facility] ASA-ACET AMINOPHE N-SALICY L-CAFF DRUG Active Other 0 01-30 00:00: 00 MD [facility] ASA-ACET AMINOPHE N-SALICY L-CAFF DRUG Active Other 01-30 00:00: 00 MD [facility] ASA-ACET AMINOPHE N-SALICY L-CAFF DRUG Active Other 01-30 00:00: 00 MD [facility] ASA-ACET AMINOPHE N-SALICY L-CAFF DRUG Active Other 01-30 00:00: 00 MD [facility] ASA-ACET AMINOPHE N-SALICY L-CAFF DRUG Active Other 01-30 00:00: 00 MD [facility] ASA-ACET AMINOPHE N-SALICY L-CAFF DRUG Active Other 01-30 00:00: 00 MD [facility] ASA-ACET AMINOPHE N-SALICY L-CAFF DRUG Active Other 01-30 00:00: 00 MD [facility] ASA-ACET AMINOPHE N-SALICY L-CAFF DRUG Active Other 01-30 00:00: 00 MD [facility] ASA-ACET AMINOPHE N-SALICY L-CAFF DRUG Active Other 01-30 00:00: 00 MD [facility] ASA-ACET AMINOPHE N-SALICY L-CAFF DRUG Active Other 01-30 00:00: 00 MD [facility] ASA-ACET AMINOPHE N-SALICY L-CAFF DRUG Active Other 01-30 00:00: 00 MD [facility] ASA-ACET AMINOPHE N-SALICY L-CAFF DRUG Active Other 01-30 00:00: 00 MD [facility] ASA-ACET AMINOPHE N-SALICY L-CAFF DRUG Active Other 01-30 00:00: 00 MD [facility] ASA-ACET AMINOPHE N-SALICY L-CAFF DRUG Active Other 01-30 00:00: 00 MD [facility] ASA-ACET AMINOPHE N-SALICY L-CAFF DRUG Active Other 01-30 00:00: 00 MD [facility] ASA-ACET AMINOPHE N-SALICY L-CAFF DRUG Active Other 01-30 00:00: 00 MD [facility] ASA-ACET AMINOPHE N-SALICY L-CAFF DRUG Active Other 01-30 00:00: 00 MD [facility] ASA-ACET AMINOPHE N-SALICY L-CAFF DRUG Active Other 01-30 00:00: 00 MD [facility] ASA-ACET AMINOPHE N-SALICY L-CAFF DRUG Active Other 0 01-30 00:00: 00 MD [facility] ASA-ACET AMINOPHE N-SALICY L-CAFF DRUG Active Other 01-30 00:00: 00 MD [facility] ASA-ACET AMINOPHE N-SALICY L-CAFF DRUG Active Other 01-30 00:00: 00 MD [facility] ASA-ACET AMINOPHE N-SALICY L-CAFF DRUG Active Other 01-30 00:00: 00 MD [facility] ASA-ACET AMINOPHE N-SALICY L-CAFF DRUG Active Other 01-30 00:00: 00 MD [facility] ASA-ACET AMINOPHE N-SALICY L-CAFF DRUG Active Other 01-30 00:00: 00 MD [facility] ASA-ACET AMINOPHE N-SALICY L-CAFF DRUG Active Other 01-30 00:00: 00 MD [facility] ASA-ACET AMINOPHE N-SALICY L-CAFF DRUG Active Other 01-30 00:00: 00 MD [facility] ASA-ACET AMINOPHE N-SALICY L-CAFF DRUG Active Other 01-30 00:00: 00 MD [facility] ASA-ACET AMINOPHE N-SALICY L-CAFF DRUG Active Other 01-30 00:00: 00 MD [facility] ASA-ACET AMINOPHE N-SALICY L-CAFF DRUG Active Other 01-30 00:00: 00 MD [facility] ASA-ACET AMINOPHE N-SALICY L-CAFF DRUG Active Other 01-30 00:00: 00 MD [facility] ASA-ACET AMINOPHE N-SALICY L-CAFF DRUG Active Other 01-30 00:00: 00 MD [facility] ASA-ACET AMINOPHE N-SALICY L-CAFF DRUG Active Other 0 01-30 00:00: 00 MD [facility] ASA-ACET AMINOPHE N-SALICY L-CAFF DRUG Active Other 0 01-30 00:00: 00 MD [facility] ASA-ACET AMINOPHE N-SALICY L-CAFF DRUG Active Other 01-30 00:00: 00 MD [facility] mill[facility] ASA-ACET AMINOPHE N-SALICY L-CAFF DRUG Active Other 01-30 00:00: 00 MD [facility] ASA-ACET AMINOPHE N-SALICY L-CAFF DRUG Active Other 01-30 00:00: 00 MD [facility] mill[facility] ASA-ACET AMINOPHE N-SALICY L-CAFF DRUG Active Other 01-30 00:00: 00 MD [facility] ASA-ACET AMINOPHE N-SALICY L-CAFF DRUG Active Other 01-30 00:00: 00 MD [facility] ASA-ACET AMINOPHE N-SALICY L-CAFF DRUG Active Other 01-30 00:00: 00 MD [facility] milligan ASA-ACET AMINOPHE N-SALICY L-CAFF DRUG Active Other 01-30 00:00: 00 MD [facility] ASA-ACET AMINOPHE N-SALICY L-CAFF DRUG Active Other 01-30 00:00: 00 MD [facility] milligan ASA-ACET AMINOPHE N-SALICY L-CAFF DRUG Active Other 01-30 00:00: 00 MD [facility] milligan ASA-ACET AMINOPHE N-SALICY L-CAFF DRUG Active Other 01-30 00:00: 00 MD [facility] milligan ASA-ACET AMINOPHE N-SALICY L-CAFF DRUG Active Other 01-30 00:00: 00 MD [facility] milligan ASA-ACET AMINOPHE N-SALICY L-CAFF DRUG Active Other 01-30 00:00: 00 MD [facility] milligan ASA-ACET AMINOPHE N-SALICY L-CAFF DRUG Active Other 01-30 00:00: 00 MD [facility] milligan ASA-ACET AMINOPHE N-SALICY L-CAFF DRUG Active Other 01-30 00:00: 00 MD [facility] milligan ASA-ACET AMINOPHE N-SALICY L-CAFF DRUG Active Other 01-30 00:00: 00 MD [facility] mill[facility] ASA-ACET AMINOPHE N-SALICY L-CAFF DRUG Active Other 01-30 00:00: 00 MD [facility] ASA-ACET AMINOPHE N-SALICY L-CAFF DRUG Active Other 01-30 00:00: 00 MD [facility] milligan ASA-ACET AMINOPHE N-SALICY L-CAFF DRUG Active Other 01-30 00:00: 00 MD [facility] milligan ASA-ACET AMINOPHE N-SALICY L-CAFF DRUG Active Other 01-30 00:00: 00 MD [facility] ASA-ACET AMINOPHE N-SALICY L-CAFF DRUG Active Other 01-30 00:00: 00 MD [facility] milligan ASA-ACET AMINOPHE N-SALICY L-CAFF DRUG Active Other 01-30 00:00: 00 MD [facility] milligan ASA-ACET AMINOPHE N-SALICY L-CAFF DRUG Active Other 01-30 00:00: 00 MD [facility] milligan ASA-ACET AMINOPHE N-SALICY L-CAFF DRUG Active Other 01-30 00:00: 00 MD [facility] milligan ASA-ACET AMINOPHE N-SALICY L-CAFF DRUG Active Other 01-30 00:00: 00 MD Mnie milligan ASA-ACET AMINOPHE N-SALICY L-CAFF DRUG Active Other 01-30 00:00: 00 MD [facility] mill[facility] ASA-ACET AMINOPHE N-SALICY L-CAFF DRUG Active Other 01-30 00:00: 00 MD [facility] milligan ASA-ACET AMINOPHE N-SALICY L-CAFF DRUG Active Other 01-30 00:00: 00 MD [facility] mill[facility] ASA-ACET AMINOPHE N-SALICY L-CAFF DRUG Active Other 01-30 00:00: 00 MD Mine milligan ASA-ACET AMINOPHE N-SALICY L-CAFF DRUG Active Other 01-30 00:00: 00 MD Mine milligan ASA-ACET AMINOPHE N-SALICY L-CAFF DRUG Active Other 01-30 00:00: 00 MD Mine milligan ASA-ACET AMINOPHE N-SALICY L-CAFF DRUG Active Other 01-30 00:00: 00 MD Mine milligan ASA-ACET AMINOPHE N-SALICY L-CAFF DRUG Active Other 01-30 00:00: 00 MD Mine milligan ASA-ACET AMINOPHE N-SALICY L-CAFF DRUG Active Other 01-30 00:00: 00 MD Mine milligan ASA-ACET AMINOPHE N-SALICY L-CAFF DRUG Active Other 01-30 00:00: 00 MD Mine milligan ASA-ACET AMINOPHE N-SALICY L-CAFF DRUG Active Other 01-30 00:00: 00 MD Mine milligan ASA-ACET AMINOPHE N-SALICY L-CAFF DRUG Active Other 01-30 00:00: 00 MD Mine milligan ASA-ACET AMINOPHE N-SALICY L-CAFF DRUG Active Other 01-30 00:00: 00 MD Mine milligan ASA-ACET AMINOPHE N-SALICY L-CAFF DRUG Active Other 01-30 00:00: 00 MD Mine milligan ASA-ACET AMINOPHE N-SALICY L-CAFF DRUG Active Other 01-30 00:00: 00 MD Mine milligan ASA-ACET AMINOPHE N-SALICY L-CAFF DRUG Active Other 01-30 00:00: 00 MD Mine milligan ASA-ACET AMINOPHE N-SALICY L-CAFF DRUG Active Other 01-30 00:00: 00 MD Mine milligan ASA-ACET AMINOPHE N-SALICY L-CAFF DRUG Active Other 01-30 00:00: 00 MD Mine milligan ASA-ACET AMINOPHE N-SALICY L-CAFF DRUG Active Other 01-30 00:00: 00 MD Mine milligan ASA-ACET AMINOPHE N-SALICY L-CAFF DRUG Active Other 01-30 00:00: 00 MD Mine milligan ASA-ACET AMINOPHE N-SALICY L-CAFF DRUG Active Other 0 01-30 00:00: 00 MD Mine milligan ASA-ACET AMINOPHE N-SALICY L-CAFF DRUG Active Other 0 01-30 00:00: 00 MD Mine milligan ASA-ACET AMINOPHE N-SALICY L-CAFF DRUG Active Other 0 01-30 00:00: 00 MD Mine milligan ASA-ACET AMINOPHE N-SALICY L-CAFF DRUG Active Other 0 01-30 00:00: 00 MD Mine milligan ASA-ACET AMINOPHE N-SALICY L-CAFF DRUG Active Other 0 01-30 00:00: 00 MD Mine milligan ASA-ACET AMINOPHE N-SALICY L-CAFF DRUG Active Other 0 01-30 00:00: 00 MD Mine milligan ASA-ACET AMINOPHE N-SALICY L-CAFF DRUG Active Other 0 01-30 00:00: 00 MD Mine milligan ASA-ACET AMINOPHE N-SALICY L-CAFF DRUG Active Other 0 01-30 00:00: 00 MD Mine milligan ASA-ACET AMINOPHE N-SALICY L-CAFF DRUG Active Other 01-30 00:00: 00 MD Mine milligan ASA-ACET AMINOPHE N-SALICY L-CAFF DRUG Active Other 01-30 00:00: 00 MD Mine milligan ASA-ACET AMINOPHE N-SALICY L-CAFF DRUG Active Other 0 01-30 00:00: 00 MD Mine milligan ASA-ACET AMINOPHE N-SALICY L-CAFF DRUG Active Other 0 01-30 00:00: 00 MD Mine milligan ASA-ACET AMINOPHE N-SALICY L-CAFF DRUG Active Other 0 01-30 00:00: 00 MD Mine milligan ASA-ACET AMINOPHE N-SALICY L-CAFF DRUG Active Other 0 01-30 00:00: 00 MD Mine milligan ASA-ACET AMINOPHE N-SALICY L-CAFF DRUG Active Other 0 01-30 00:00: 00 MD Mine milligan ASA-APAP -SALICYL -CAFF Allergy to substanc e Active 01-30 00:00: 00 [facility] ASA-ACET AMINOPHE N-SALICY L-CAFF DRUG Active Other 01-30 00:00: 00 MD Mine milligan ASA-ACET AMINOPHE N-SALICY L-CAFF DRUG Active Other 01-30 00:00: 00 MD Mine milligan ASA-ACET AMINOPHE N-SALICY L-CAFF DRUG Active Other 01-30 00:00: 00 MD Mine milligan ASA-ACET AMINOPHE N-SALICY L-CAFF DRUG Active Other 01-30 00:00: 00 MD Mine milligan ASA-ACET AMINOPHE N-SALICY L-CAFF DRUG Active Other 01-30 00:00: 00 MD Mine milligan ASA-ACET AMINOPHE N-SALICY L-CAFF DRUG Active Other 01-30 00:00: 00 MD Mine milligan ASA-ACET AMINOPHE N-SALICY L-CAFF DRUG Active Other 01-30 00:00: 00 MD Mine milligan ASA-ACET AMINOPHE N-SALICY L-CAFF DRUG Active Other 01-30 00:00: 00 MD Mine milligan ASA-ACET AMINOPHE N-SALICY L-CAFF DRUG Active Other 01-30 00:00: 00 MD Mine milligan ASA-ACET AMINOPHE N-SALICY L-CAFF DRUG Active Other 01-30 00:00: 00 MD Mine milligan ASA-ACET AMINOPHE N-SALICY L-CAFF DRUG Active Other 01-30 00:00: 00 MD Mien milligan ASA-ACET AMINOPHE N-SALICY L-CAFF DRUG Active Other 01-30 00:00: 00 MD Mine milligan ASA-ACET AMINOPHE N-SALICY L-CAFF DRUG Active Other 01-30 00:00: 00 MD Mine milligan ASA-ACET AMINOPHE N-SALICY L-CAFF DRUG Active Other 01-30 00:00: 00 MD Mine milligan ASA-ACET AMINOPHE N-SALICY L-CAFF DRUG Active Other 01-30 00:00: 00 MD Mine milligan ASA-ACET AMINOPHE N-SALICY L-CAFF DRUG Active Other 01-30 00:00: 00 MD Mine milligan ASA-ACET AMINOPHE N-SALICY L-CAFF DRUG Active Other 0 01-30 00:00: 00 MD Mine milligan ASA-ACET AMINOPHE N-SALICY L-CAFF DRUG Active Other 01-30 00:00: 00 MD Mine milligan ASA-ACET AMINOPHE N-SALICY L-CAFF DRUG Active Other 01-30 00:00: 00 MD Mine milligan ASA-ACET AMINOPHE N-SALICY L-CAFF DRUG Active Other 01-30 00:00: 00 MD Mine milligan ASA-ACET AMINOPHE N-SALICY L-CAFF DRUG Active Other 01-30 00:00: 00 MD Mine milligan ASA-ACET AMINOPHE N-SALICY L-CAFF DRUG Active Other 01-30 00:00: 00 MD Mine milligan A[facility] DRUG Active Other 01-30 00:00: 00 MD Mine milligan ASA-ACET AMINOPHE N-SALICY L-CAFF DRUG Active Other 01-30 00:00: 00 MD Mine milligan ASA-ACET AMINOPHE N-SALICY L-CAFF DRUG Active Other 01-30 00:00: 00 MD Mine milligan ASA-ACET AMINOPHE N-SALICY L-CAFF DRUG Active Other 01-30 00:00: 00 MD Mine milligan ASA-ACET AMINOPHE N-SALICY L-CAFF DRUG Active Other 01-30 00:00: 00 MD Mine milligan ASA-ACET AMINOPHE N-SALICY L-CAFF DRUG Active Other 01-30 00:00: 00 MD Mine milligan ASA-ACET AMINOPHE N-SALICY L-CAFF DRUG Active Other 01-30 00:00: 00 MD Mine milligan ASA-ACET AMINOPHE N-SALICY L-CAFF DRUG Active Other 01-30 00:00: 00 MD Mine milligan ASA-ACET AMINOPHE N-SALICY L-CAFF DRUG Active Other 0 01-30 00:00: 00 MD Mine milligan ASA-ACET AMINOPHE N-SALICY L-CAFF DRUG Active Other 01-30 00:00: 00 MD Mine milligan ASA-ACET AMINOPHE N-SALICY L-CAFF DRUG Active Other 01-30 00:00: 00 MD Mine milligan ASA-ACET AMINOPHE N-SALICY L-CAFF DRUG Active Other 01-30 00:00: 00 MD Mine milligan ASA-ACET AMINOPHE N-SALICY L-CAFF DRUG Active Other 01-30 00:00: 00 MD Mine mililgan ASA-ACET AMINOPHE N-SALICY L-CAFF DRUG Active Other 01-30 00:00: 00 MD Mine milligan ASA-ACET AMINOPHE N-SALICY L-CAFF DRUG Active Other 01-30 00:00: 00 MD Mine milligan ASA-ACET AMINOPHE N-SALICY L-CAFF DRUG Active Other 01-30 00:00: 00 MD Mine milligan ASA-ACET AMINOPHE N-SALICY L-CAFF DRUG Active Other 01-30 00:00: 00 MD Mine milligan ASA-ACET AMINOPHE N-SALICY L-CAFF DRUG Active Other 01-30 00:00: 00 MD Mine milligan ASA-ACET AMINOPHE N-SALICY L-CAFF DRUG Active Other 01-30 00:00: 00 MD Mine milligan ASA-ACET AMINOPHE N-SALICY L-CAFF DRUG Active Other 01-30 00:00: 00 MD Mine milligan ASA-ACET AMINOPHE N-SALICY L-CAFF DRUG Active Other 01-30 00:00: 00 MD Mine milligan ASA-ACET AMINOPHE N-SALICY L-CAFF DRUG Active Other 01-30 00:00: 00 MD Mine milligan ASA-ACET AMINOPHE N-SALICY L-CAFF DRUG Active Other 01-30 00:00: 00 MD Mine milligan ASA-ACET AMINOPHE N-SALICY L-CAFF DRUG Active Other 01-30 00:00: 00 MD Mine milligan ASA-ACET AMINOPHE N-SALICY L-CAFF DRUG Active 01-30 00:00: 00 MD Mine milligan ASA-ACET AMINOPHE N-SALICY L-CAFF DRUG Active 01-30 00:00: 00 MD Mine milligan ASA-ACET AMINOPHE N-SALICY L-CAFF DRUG Active 01-30 00:00: 00 MD Mine milligan ASA-ACET AMINOPHE N-SALICY L-CAFF DRUG Active 01-30 00:00: 00 MD Mine milligan ASA-ACET AMINOPHE N-SALICY L-CAFF DRUG Active 01-30 00:00: 00 MD Mine milligan ASA-ACET AMINOPHE N-SALICY L-CAFF DRUG Active 01-30 00:00: 00 MD Mine milligan ASA-ACET AMINOPHE N-SALICY L-CAFF DRUG Active 01-30 00:00: 00 MD Mine milligan ASA-ACET AMINOPHE N-SALICY L-CAFF DRUG Active 01-30 00:00: 00 MD Mine milligan ASA-ACET AMINOPHE N-SALICY L-CAFF DRUG Active 01-30 00:00: 00 MD Mine milligan ASA-ACET AMINOPHE N-SALICY L-CAFF DRUG Active 01-30 00:00: 00 MD Mine milligan ASA-ACET AMINOPHE N-SALICY L-CAFF DRUG Active 01-30 00:00: 00 MD Mine milligan ASA-ACET AMINOPHE N-SALICY L-CAFF DRUG Active 01-30 00:00: 00 MD Mine milligan ASA-ACET AMINOPHE N-SALICY L-CAFF DRUG Active 01-30 00:00: 00 MD Mine milliagn ASA-ACET AMINOPHE N-SALICY L-CAFF DRUG Active 01-30 00:00: 00 MD Mine milligan ASA-ACET AMINOPHE N-SALICY L-CAFF DRUG Active 01-30 00:00: 00 MD Mine milligan ASA-ACET AMINOPHE N-SALICY L-CAFF DRUG Active 01-30 00:00: 00 MD Mine milligan ASA-ACET AMINOPHE N-SALICY L-CAFF DRUG Active 01-30 00:00: 00 MD Mine milligan ASA-ACET AMINOPHE N-SALICY L-CAFF DRUG Active 01-30 00:00: 00 MD Mine milligan ASA-ACET AMINOPHE N-SALICY L-CAFF DRUG Active 01-30 00:00: 00 MD Mine milligan ASA-ACET AMINOPHE N-SALICY L-CAFF DRUG Active 01-30 00:00: 00 MD Mine milligan ASA-ACET AMINOPHE N-SALICY L-CAFF DRUG Active 01-30 00:00: 00 MD Mine milligan ASA-ACET AMINOPHE N-SALICY L-CAFF DRUG Active 01-30 00:00: 00 MD Mine milligan ASA-ACET AMINOPHE N-SALICY L-CAFF DRUG Active 01-30 00:00: 00 MD Mnie milligan ASA-ACET AMINOPHE N-SALICY L-CAFF DRUG Active 01-30 00:00: 00 MD Mine milligan ASA-ACET AMINOPHE N-SALICY L-CAFF DRUG Active 01-30 00:00: 00 MD Mine milligan ASA-ACET AMINOPHE N-SALICY L-CAFF DRUG Active 01-30 00:00: 00 MD Mine milligan ASA-ACET AMINOPHE N-SALICY L-CAFF DRUG Active 01-30 00:00: 00 MD Mine milligan ASA-ACET AMINOPHE N-SALICY L-CAFF DRUG Active 01-30 00:00: 00 MD Mine milligan ASA-ACET AMINOPHE N-SALICY L-CAFF DRUG Active 01-30 00:00: 00 MD Mine milligan ASA-ACET AMINOPHE N-SALICY L-CAFF DRUG Active 01-30 00:00: 00 MD Mine milligan ASA-ACET AMINOPHE N-SALICY L-CAFF DRUG Active 01-30 00:00: 00 MD Mine milligan ASA-ACET AMINOPHE N-SALICY L-CAFF DRUG Active 01-30 00:00: 00 MD Mine milligan ASA-ACET AMINOPHE N-SALICY L-CAFF DRUG Active 01-30 00:00: 00 MD Mine milligan ASA-ACET AMINOPHE N-SALICY L-CAFF DRUG Active 01-30 00:00: 00 MD Mine milligan ASA-ACET AMINOPHE N-SALICY L-CAFF DRUG Active 01-30 00:00: 00 MD Mine milligan ASA-ACET AMINOPHE N-SALICY L-CAFF DRUG Active 01-30 00:00: 00 MD Mnie milligan ASA-ACET AMINOPHE N-SALICY L-CAFF DRUG Active 01-30 00:00: 00 MD Mine milligan ASA-ACET AMINOPHE N-SALICY L-CAFF DRUG Active 01-30 00:00: 00 MD Mine millgian ASA-ACET AMINOPHE N-SALICY L-CAFF DRUG Active 01-30 00:00: 00 MD Mine milligan ASA-ACET AMINOPHE N-SALICY L-CAFF DRUG Active 01-30 00:00: 00 MD Mine milligan ASA-ACET AMINOPHE N-SALICY L-CAFF DRUG Active 01-30 00:00: 00 MD Mine milligan ASA-ACET AMINOPHE N-SALICY L-CAFF DRUG Active 01-30 00:00: 00 MD Mine milligan ASA-ACET AMINOPHE N-SALICY L-CAFF DRUG Active 01-30 00:00: 00 MD Mine milligan ASA-ACET AMINOPHE N-SALICY L-CAFF DRUG Active 01-30 00:00: 00 MD Mine milligan ASA-ACET AMINOPHE N-SALICY L-CAFF DRUG Active 01-30 00:00: 00 MD Mine milligan ASA-ACET AMINOPHE N-SALICY L-CAFF DRUG Active 01-30 00:00: 00 MD Mine milligan ASA-ACET AMINOPHE N-SALICY L-CAFF DRUG Active 01-30 00:00: 00 MD Mine milligan ASA-ACET AMINOPHE N-SALICY L-CAFF DRUG Active 01-30 00:00: 00 MD Mine milligan ASA-ACET AMINOPHE N-SALICY L-CAFF DRUG Active 01-30 00:00: 00 MD Mine milligan ASA-ACET AMINOPHE N-SALICY L-CAFF DRUG Active 01-30 00:00: 00 MD Mine milligan ASA-ACET AMINOPHE N-SALICY L-CAFF DRUG Active 01-30 00:00: 00 MD Mine milligan ASA-ACET AMINOPHE N-SALICY L-CAFF DRUG Active 01-30 00:00: 00 MD Mine milligan ASA-ACET AMINOPHE N-SALICY L-CAFF DRUG Active 01-30 00:00: 00 MD Mine milligan ASA-ACET AMINOPHE N-SALICY L-CAFF DRUG Active 01-30 00:00: 00 MD Mine milligan NO KNOWN ALLERGIE S Drug Class Active [facility] Medications Ordered Medication Name Filled Medication Name Start Date Stop Date Current Medication? Ordering Clinician Indication Dosage Frequency Signature (SIG) Comments Components Source amoxicillin 500 mg-potassiu m clavulanate 125 mg tablet TAKE 1 TABLET BY MOUTH TWICE A DAY amoxicillin 500 mg-potassiu m clavulanate 125 mg tablet TAKE 1 TABLET BY MOUTH TWICE A DAY No amoxicilli n 500 mg-potassi um clavulanat e 125 mg tablet TAKE 1 TABLET BY MOUTH TWICE A DAY [facility] atorvastati n 40 mg tablet TAKE 1 TABLET BY MOUTH EVERY DAY atorvastati n 40 mg tablet TAKE 1 TABLET BY MOUTH EVERY DAY No atorvastat in 40 mg tablet TAKE 1 TABLET BY MOUTH EVERY DAY [facility] atorvastati n 80 mg tablet TAKE 1 TABLET BY MOUTH EVERY DAY atorvastati n 80 mg tablet TAKE 1 TABLET BY MOUTH EVERY DAY No atorvastat in 80 mg tablet TAKE 1 TABLET BY MOUTH EVERY DAY [facility] Besivance 0.6 % eye drops,suspe nsion INSTILL 1 DROP IN THE RIGHT EYE EVERY 2 HOURS Besivance 0.6 % eye drops,suspe nsion INSTILL 1 DROP IN THE RIGHT EYE EVERY 2 HOURS No Besivance 0.6 % eye drops,susp ension INSTILL 1 DROP IN THE RIGHT EYE EVERY 2 HOURS [facility] betamethaso ne, augmented 0.05 % topical cream APPLY TO AFFECTED AREA TWICE A DAY NEEDED betamethaso ne, augmented 0.05 % topical cream APPLY TO AFFECTED AREA TWICE A DAY NEEDED No betamethas one, augmented 0.05 % topical cream APPLY TO AFFECTED AREA TWICE A DAY NEEDED [facility] Colace 100 mg capsule 1 capsule as needed, 100 MG, Once a day Colace 100 mg capsule 1 capsule as needed, 100 MG, Once a day No Colace 100 mg capsule 1 capsule as needed, 100 MG, Once a day [facility] Dexcom G6 Sensor device USE 1 SENSOR UP TO 10 DAYS Dexcom G6 Sensor device USE 1 SENSOR UP TO 10 DAYS No Dexcom G6 Sensor device USE 1 SENSOR UP TO 10 DAYS [facility] Dexcom G6 Transmitter device FOR CONTINUOUS GLUCOSE MONITORING Dexcom G6 Transmitter device FOR CONTINUOUS GLUCOSE MONITORING No Dexcom G6 Transmitte r device FOR CONTINUOUS GLUCOSE MONITORING [facility] diclofenac 1 % topical gel Apply 1 to 2 grams to the affected area three to four times daily diclofenac 1 % topical gel Apply 1 to 2 grams to the affected area three to four times daily No diclofenac 1 % topical gel Apply 1 to 2 grams to the affected area three to four times daily [facility] doxycycline hyclate 100 mg tablet TAKE ONE TABLET DAILY WITH FOOD. DO NOT LAY DOWN FOR 2 HOURS AFTER TAKING. doxycycline hyclate 100 mg tablet TAKE ONE TABLET DAILY WITH FOOD. DO NOT LAY DOWN FOR 2 HOURS AFTER TAKING. No doxycyclin e hyclate 100 mg tablet TAKE ONE TABLET DAILY WITH FOOD. DO NOT LAY DOWN FOR 2 HOURS AFTER TAKING. [facility] duloxetine 60 mg capsule,del ayed release duloxetine 60 mg capsule,del ayed release No duloxetine 60 mg capsule,de layed release [facility] Eliquis 5 mg tablet Eliquis 5 mg tablet No Eliquis 5 mg tablet [facility] ezetimibe 10 mg tablet TAKE 1 TABLET BY MOUTH EVERY DAY ezetimibe 10 mg tablet TAKE 1 TABLET BY MOUTH EVERY DAY No ezetimibe 10 mg tablet TAKE 1 TABLET BY MOUTH EVERY DAY [facility] furosemide 20 mg tablet TAKE 1 TABLET (20 MG) BY MOUTH EVERY OTHER DAY FOR 180 DAYS. furosemide 20 mg tablet TAKE 1 TABLET (20 MG) BY MOUTH EVERY OTHER DAY FOR 180 DAYS. No furosemide 20 mg tablet TAKE 1 TABLET (20 MG) BY MOUTH EVERY OTHER DAY FOR 180 DAYS. [facility] gabapentin 800 mg tablet TAKE 2 TABLETS (1,600 MG) BY MOUTH 3 (THREE) TIMES A DAY. gabapentin 800 mg tablet TAKE 2 TABLETS (1,600 MG) BY MOUTH 3 (THREE) TIMES A DAY. No gabapentin 800 mg tablet TAKE 2 TABLETS (1,600 MG) BY MOUTH 3 (THREE) TIMES A DAY. [facility] gentamicin 0.1 % topical cream gentamicin 0.1 % topical cream No gentamicin 0.1 % topical cream [facility] glimepiride 2 mg tablet TAKE 1 TABLET (2 MG) BY MOUTH TWICE DAILY glimepiride 2 mg tablet TAKE 1 TABLET (2 MG) BY MOUTH TWICE DAILY No glimepirid e 2 mg tablet TAKE 1 TABLET (2 MG) BY MOUTH TWICE DAILY [facility] Humalog KwikPen (U-100) Insulin 100 unit/mL subcutaneou s Humalog KwikPen (U-100) Insulin 100 unit/mL subcutaneou s No Humalog KwikPen (U-100) Insulin 100 unit/mL subcutaneo us [facility] hydrochloro thiazide 12.5 mg tablet hydrochloro thiazide 12.5 mg tablet No hydrochlor othiazide 12.5 mg tablet [facility] hydrochloro thiazide 25 mg tablet TAKE 1 TABLET BY MOUTH EVERY DAY IN THE MORNING hydrochloro thiazide 25 mg tablet TAKE 1 TABLET BY MOUTH EVERY DAY IN THE MORNING No hydrochlor othiazide 25 mg tablet TAKE 1 TABLET BY MOUTH EVERY DAY IN THE MORNING [facility] hydrocodone 10 mg-acetamin ophen 325 mg tablet TAKE 1 TABLET BY MOUTH EVERY 8 (EIGHT) HOURS NEEDED FOR MODERATE PAIN. PAIN hydrocodone 10 mg-acetamin ophen 325 mg tablet TAKE 1 TABLET BY MOUTH EVERY 8 (EIGHT) HOURS NEEDED FOR MODERATE PAIN. PAIN No hydrocodon e 10 mg-acetami nophen 325 mg tablet TAKE 1 TABLET BY MOUTH EVERY 8 (EIGHT) HOURS NEEDED FOR MODERATE PAIN. PAIN [facility] levothyroxi ne 25 mcg tablet levothyroxi ne 25 mcg tablet No levothyrox ine 25 mcg tablet [facility] levothyroxi ne 50 mcg tablet TAKE 1 TABLET BY MOUTH EVERY DAY BEFORE BREAKFAST levothyroxi ne 50 mcg tablet TAKE 1 TABLET BY MOUTH EVERY DAY BEFORE BREAKFAST No levothyrox ine 50 mcg tablet TAKE 1 TABLET BY MOUTH EVERY DAY BEFORE BREAKFAST [facility] lidocaine-p rilocaine 2.5 %-2.5 % topical cream Apply to the affected area three to four times daily as directed lidocaine-p rilocaine 2.5 %-2.5 % topical cream Apply to the affected area three to four times daily as directed No lidocaine- prilocaine 2.5 %-2.5 % topical cream Apply to the affected area three to four times daily as directed [facility] metformin 1,000 mg tablet TAKE 1 TABLET (1,000 MG) BY MOUTH 2 (TWO) TIMES A DAY WITH MEALS. metformin 1,000 mg tablet TAKE 1 TABLET (1,000 MG) BY MOUTH 2 (TWO) TIMES A DAY WITH MEALS. No metformin 1,000 mg tablet TAKE 1 TABLET (1,000 MG) BY MOUTH 2 (TWO) TIMES A DAY WITH MEALS. [facility] methadone 10 mg tablet TAKE 1 TABLET BY MOUTH EVERY 6 (SIX) HOURS, methadone 10 mg tablet TAKE 1 TABLET BY MOUTH EVERY 6 (SIX) HOURS, No methadone 10 mg tablet TAKE 1 TABLET BY MOUTH EVERY 6 (SIX) HOURS, [facility] metoprolol succinate ER 200 mg tablet,exte nded release 24 hr TAKE 1 TABLET BY MOUTH EVERY DAY metoprolol succinate ER 200 mg tablet,exte nded release 24 hr TAKE 1 TABLET BY MOUTH EVERY DAY No metoprolol succinate ER 200 mg tablet,ext ended release 24 hr TAKE 1 TABLET BY MOUTH EVERY DAY [facility] nifedipine nifedipine No [facility]ine [facility] nifedipine ER 30 mg tablet,exte nded release nifedipine ER 30 mg tablet,exte nded release No nifedipine ER 30 mg tablet,ext ended release [facility] nifedipine ER 30 mg tablet,exte nded release 24 hr TAKE 1 TABLET (30 MG) BY MOUTH EVERY MORNING nifedipine ER 30 mg tablet,exte nded release 24 hr TAKE 1 TABLET (30 MG) BY MOUTH EVERY MORNING No nifedipine ER 30 mg tablet,ext ended release 24 hr TAKE 1 TABLET (30 MG) BY MOUTH EVERY MORNING [facility] nifedipine ER 60 mg tablet,exte nded release 24 hr TAKE 1 TABLET (60 MG) BY MOUTH AT BEDTIME. nifedipine ER 60 mg tablet,exte nded release 24 hr TAKE 1 TABLET (60 MG) BY MOUTH AT BEDTIME. No nifedipine ER 60 mg tablet,ext ended release 24 hr TAKE 1 TABLET (60 MG) BY MOUTH AT BEDTIME. [facility] Novolin N NPH U-100 Insulin isophane 100 unit/mL subcutaneou s susp INJECT 70 UNITS SUBCUTANEOU SLY EVERY MORNING AND INJECT 45 UNITS SUBCUTANEOU SLY AT BEDTIME Novolin N NPH U-100 Insulin isophane 100 unit/mL subcutaneou s susp INJECT 70 UNITS SUBCUTANEOU SLY EVERY MORNING AND INJECT 45 UNITS SUBCUTANEOU SLY AT BEDTIME No Novolin N NPH U-100 Insulin isophane 100 unit/mL subcutaneo us susp INJECT 70 UNITS SUBCUTANEO USLY EVERY MORNING AND INJECT 45 UNITS SUBCUTANEO USLY AT BEDTIME [facility] OneTouch Ultra Blue Test Strip OneTouch Ultra Blue Test Strip No OneTouch Ultra Blue Test Strip [facility] OneTouch Ultra Test strips OneTouch Ultra Test strips No OneTouch Ultra Test strips [facility] OneTouch UltraMini kit TEST BLOOD SUGAR BEFORE MEALS OneTouch UltraMini kit TEST BLOOD SUGAR BEFORE MEALS No OneTouch UltraMini kit TEST BLOOD SUGAR BEFORE MEALS [facility] pantoprazol e 40 mg tablet,jeremie yed release TAKE 1 TABLET BY MOUTH EVERY MORNING BEFORE BREAKFAST pantoprazol e 40 mg tablet,jeremie yed release TAKE 1 TABLET BY MOUTH EVERY MORNING BEFORE BREAKFAST No pantoprazo le 40 mg tablet,del ayed release TAKE 1 TABLET BY MOUTH EVERY MORNING BEFORE BREAKFAST [facility] peg 3350-electr olytes 236 gram-22.74 gram-6.74 gram-5.86 gram solution peg 3350-electr olytes 236 gram-22.74 gram-6.74 gram-5.86 gram solution No peg 3350-elect rolytes 236 gram-22.74 gram-6.74 gram-5.86 gram solution [facility] pravastatin 40 mg tablet pravastatin 40 mg tablet No pravastati n 40 mg tablet [facility] promethazin e 50 mg tablet promethazin e 50 mg tablet No promethazi ne 50 mg tablet [facility] rosuvastati n 40 mg tablet TAKE 1 TABLET BY MOUTH AT BEDTIME rosuvastati n 40 mg tablet TAKE 1 TABLET BY MOUTH AT BEDTIME No rosuvastat in 40 mg tablet TAKE 1 TABLET BY MOUTH AT BEDTIME [facility] Singulair 10 mg tablet 1 tablet in the evening, 10 MG, Once a day Singulair 10 mg tablet 1 tablet in the evening, 10 MG, Once a day No Singulair 10 mg tablet 1 tablet in the evening, 10 MG, Once a day [facility] sumatriptan 25 mg tablet sumatriptan 25 mg tablet No sumatripta n 25 mg tablet [facility] sumatriptan 50 mg tablet TAKE 1 TABLET BY MOUTH NEEDED FOR HEADACHE, CAN REPEAT X 1 AFTER 2 HOURS IF NEEDED. sumatriptan 50 mg tablet TAKE 1 TABLET BY MOUTH NEEDED FOR HEADACHE, CAN REPEAT X 1 AFTER 2 HOURS IF NEEDED. No sumatripta n 50 mg tablet TAKE 1 TABLET BY MOUTH NEEDED FOR HEADACHE, CAN REPEAT X 1 AFTER 2 HOURS IF NEEDED. [facility] tizanidine 4 mg tablet TAKE 1 TABLET BY MOUTH EVERY 8 HOURS NEEDED FOR MUSCLE SPASMS tizanidine 4 mg tablet TAKE 1 TABLET BY MOUTH EVERY 8 HOURS NEEDED FOR MUSCLE SPASMS No tizanidine 4 mg tablet TAKE 1 TABLET BY MOUTH EVERY 8 HOURS NEEDED FOR MUSCLE SPASMS [facility] topiramate 200 mg tablet TAKE 1 TABLET BY MOUTH TWICE A DAY topiramate 200 mg tablet TAKE 1 TABLET BY MOUTH TWICE A DAY No topiramate 200 mg tablet TAKE 1 TABLET BY MOUTH TWICE A DAY [facility] valacyclovi r 1 gram tablet TAKE ONE TABLET BY MOUTH EVERY DAY valacyclovi r 1 gram tablet TAKE ONE TABLET BY MOUTH EVERY DAY No valacyclov ir 1 gram tablet TAKE ONE TABLET BY MOUTH EVERY DAY [facility] venlafaxine ER 37.5 mg capsule,ext ended release 24 hr TAKE 1 CAPSULE BY MOUTH EVERY DAY DIRECTED venlafaxine ER 37.5 mg capsule,ext ended release 24 hr TAKE 1 CAPSULE BY MOUTH EVERY DAY DIRECTED No venlafaxin e ER 37.5 mg capsule,ex tended release 24 hr TAKE 1 CAPSULE BY MOUTH EVERY DAY DIRECTED [facility] Ventolin HFA 90 mcg/actuati on aerosol inhaler 2 puffs as needed, 108 (90 Base) MCG/ACT, every 4 hrs Ventolin HFA 90 mcg/actuati on aerosol inhaler 2 puffs as needed, 108 (90 Base) MCG/ACT, every 4 hrs No Ventolin HFA 90 mcg/actuat ion aerosol inhaler 2 puffs as needed, 108 (90 Base) MCG/ACT, every 4 hrs [facility] verapamil 80 mg tablet verapamil 80 mg tablet No verapamil 80 mg tablet [facility] Vital Signs Vital Name Observation Time Observation Value Comments S jennifer Height 2021-11-06 00:00:00 62 [in_i] [facility] BMI (Body Mass Index) 2021-11-06 00:00:00 51 kg/m2 [facility] BP Systolic 2021-11-06 00:00:00 133 mm[Hg] [facility] Body Weight 2021-11-06 00:00:00 279 [lb_av] [facility] BP Diastolic 2021-11-06 00:00:00 84 mm[Hg] [facility] HEIGHT 2020-10-18 14:19:00 160 cm WEIGHT 2020-10-18 14:19:00 126.1 kg HEIGHT 2020-05-24 13:57:00 161.3 cm WEIGHT 2020-05-24 13:57:00 128.2 kg Encounters Start Date/Time End Date/Time Encounter Type Admission Type Attending [facility] Facility Care Department Encounter ID Source 2021-08-16 18:16:31 Outpatient WILL SOLIS [id number] MD Mine milligan 2021-05-09 10:49:16 Outpatient SYSTEM, PROVIDER MDA WILL [id number] MD Mine milligan 2020-02-04 10:46:51 Outpatient SYSTEM, PROVIDER WILL SOLIS [id number] MD Mine milligan 2020-01-26 14:24:58 Outpatient FLOR LAGUNAS MDA Hector/Hep/Nu t [id number] MD Mine milligan 2020-01-25 11:26:47 Outpatient WILIAN ASNCHEZ MDA MDA [id number] MD Mine milligan 2020-01-25 11:25:38 Outpatient FLOR LAGUNAS MDA Hector/Hep/Nu t [id number] MD Mine milligan 2024-06-21 12:01:39 2024-06-21 12:30:42 Outpatient WING BERMUDEZ MDA MDA [id number] MD Mine milligan 2024-06-21 10:55:08 2024-06-21 10:55:08 Outpatient CARMELA BETTENCOURT MDA MDA [id number] MD Mine milligan 2024-06-07 10:45:42 2024-06-07 23:59:00 Outpatient EL CARMELA ÁLVAREZ MDA MDA [id number] MD Mine milligan 2024-05-24 13:41:34 2024-05-24 23:59:00 Outpatient EL CARMELA ÁLVAREZ MDA MDA [id number] MD Mine milligan 2024-05-05 10:48:34 2024-05-05 23:59:00 Outpatient EL CARMELA ÁLVAREZ MDA MDA [id number] MD Mine milligan 2024-04-27 07:21:50 2024-04-27 07:21:50 Outpatient EL JANNET BANG MDA MDA [id number] MD Mine milligan 2024-04-19 07:52:27 2024-04-19 23:59:00 Outpatient EL CARMELA ÁLVAREZ MDA MDA [id number] MD Mine milligan 2024-04-12 10:51:02 2024-04-12 23:59:00 Outpatient EL CARMELA ÁLVAREZ MDA MDA [id number] MD Mine milligan 2024-03-29 09:45:10 2024-03-29 23:59:00 Outpatient EL CARMELA ÁLVAREZ MDA MDA [id number] MD Mine milligan 2024-03-24 11:00:00 2024-03-24 23:59:00 Outpatient EL CARMELA ÁLVAREZ MDA MDA [id number] MD Mine milligan 2024-03-09 10:56:46 2024-03-09 23:59:00 Outpatient EL CARMELA ÁLVAREZ MDA MDA [id number] MD Mine milligan 2024-03-01 11:12:13 2024-03-01 23:59:00 Outpatient EL YU-DINO MORROW MDA MDA [id number] MD Mine milligan 2024-03-01 10:16:17 2024-03-01 11:11:00 Outpatient EL HENRI CARMELA MDA MDA [id number] MD Mine milligan 2024-03-01 10:16:17 2024-03-01 11:11:00 Outpatient EL CARMELA ÁLVAREZ MDA MDA [id number] MD Mine milligan 2024-03-01 08:56:29 2024-03-01 10:15:00 Outpatient EL HUH, CARMELA MDA MDA [id number] MD Mine milligan 2024-02-25 11:00:00 2024-02-25 23:59:00 Outpatient EL HUH, CARMELA MDA MDA [id number] MD Mine milligan 2024-02-24 13:03:49 2024-02-24 13:03:49 Outpatient EL SIRI HOS MDA MDA [id number] MD Mine milligan 2024-02-11 10:53:28 2024-02-11 23:59:00 Outpatient EL HUH, CARMELA MDA MDA [id number] MD Mine milligan 2024-02-04 11:00:00 2024-02-04 23:59:00 Outpatient EL HUH, CARMELA MDA MDA [id number] MD Mine milligan 2024-02-02 08:46:03 2024-02-02 09:45:40 Outpatient EL CASTRO HO MDA MDA [id number] MD Mine milligan 2024-01-29 13:09:24 2024-01-29 23:59:00 Outpatient EL HUH, CARMELA MDA MDA [id number] MD Mine milligan 2024-01-05 09:43:38 2024-01-05 23:59:00 Outpatient EL HUH, CARMELA MDA MDA [id number] MD Mine milligan 2024-01-01 10:59:37 2024-01-01 23:59:00 Outpatient EL HUH, CARMELA MDA MDA [id number] MD Mine milligan 2023-12-11 10:51:02 2023-12-11 23:59:00 Outpatient EL HUH, CARMELA MDA MDA [id number] MD Mine milligan 2023-12-01 08:37:51 2023-12-01 23:59:00 Outpatient EL HUH, CARMELA MDA MDA [id number] MD Mine milligan 2023-12-01 08:37:51 2023-12-01 23:59:00 Outpatient EL HUH, CARMELA MDA MDA [id number] MD Mine milligan 2023-11-26 10:00:00 2023-11-26 23:59:00 Outpatient EL CARMELA ÁLVAREZ MDA MDA [id number] MD Mine milligan 2023-11-13 11:30:00 2023-11-13 23:59:00 Outpatient EL CARMELA ÁLVAREZ MDA MDA [id number] MD Mine milligan 2023-11-13 09:55:57 2023-11-13 11:29:00 Outpatient EL YOLA ÁLVAREZY MDA MDA [id number] MD Mine milligan 2023-11-13 09:55:57 2023-11-13 11:29:00 Outpatient EL YOLA ÁLVAREZY MDA MDA [id number] MD Mine milligan 2023-11-04 11:00:00 2023-11-04 23:59:00 Outpatient EL CARMELA ÁLVAREZ MDA MDA [id number] MD [facility] milligan 2023-10-30 10:56:54 2023-10-30 23:59:00 Outpatient EL CARMELA ÁLVAREZ MDA MDA [id number] MD [facility] milligan 2023-10-23 10:04:45 2023-10-23 12:01:54 Outpatient SHIRLEY VALENTINE TORI MDA MDA [id number] MD [facility] 2023-10-22 11:40:22 2023-10-22 23:59:00 Outpatient EL JANNET BANG MDA MDA [id number] MD [facility] 2023-10-22 09:51:57 2023-10-22 11:39:00 Outpatient SHIRLEY TORI VALENTINE MDA MDA [id number] MD [facility] 2023-10-22 10:11:47 2023-10-22 10:11:47 Outpatient SHIRLEY VALENTINE TORI MDA MDA [id number] MD [facility] 2023-10-06 10:38:19 2023-10-06 23:59:00 Outpatient EL HENRI CARMELA MDA MDA [id number] MD [facility] 2023-09-26 10:41:34 2023-09-26 23:59:00 Outpatient EL HENRI CARMELA MDA MDA [id number] MD [facility] 2023-09-10 10:52:25 2023-09-10 23:59:00 Outpatient EL HENRI CARMELA MDA MDA [id number] MD [facility] 2023-09-04 10:22:57 2023-09-04 23:59:00 Outpatient EL CARMELA ÁLVAREZ MDA MDA [id number] MD [facility] 2023-08-27 08:53:41 2023-08-27 23:59:00 Outpatient EL CARMELA ÁLVAREZ MDA MDA [id number] MD [facility] 2023-08-27 10:24:52 2023-08-27 13:28:05 Outpatient EL BHAVIN HERNANDES MDA MDA [id number] MD [facility] 2023-08-13 09:48:35 2023-08-13 23:59:00 Outpatient EL CARMELA ÁLVAREZ MDA MDA [id number] [facility] 09:26[facility]41 2023-08-05 09:38:52 [id number] 08:37:28 2023-07-18 11:00:13 Outpatient EL MELLISSA LUGO MDA MDA [id number] [facility] 2023-07-16 13:00:00 2023-07-16 23:59:00 Outpatient EL CARMELA ÁLVAREZ MDA MDA [id number] [facility] 2023-07-16 12:23:15 2023-07-16 12:59:00 Outpatient EL DIONE SOTO MDA MDA [id number] [facility]-03 09:46:15 2023-07-03 23:59:00 Outpatient EL CARMELA ÁLVAREZ MDA MDA [id number] [facility] 2023-06-25 07:53:22 2023-06-25 23:59:00 Outpatient EL CARMELA ÁLVAREZ MDA MDA [id number] [facility] 2023-06-25 07:53:22 2023-06-25 23:59:00 Outpatient EL CARMELA ÁLVAREZ MDA MDA [id number] [facility] 2023-06-20 09:00:00 2023-06-20 23:59:00 Outpatient EL CARMELA ÁLVAREZ MDA MDA [id number] [facility] 2023-06-13 08:28:18 2023-06-13 23:59:00 Outpatient EL HENRI CARMELA MDA MDA [id number] [facility] 2023-05-19 09:51:36 2023-05-19 23:59:00 Outpatient EL HENRI CARMELA MDA MDA [id number] [facility] 2023-05-15 10:46:11 2023-05-15 23:59:00 Outpatient EL HUH CARMELA MDA MDA [id number] [facility] 2023-05-05 10:53:48 2023-05-05 23:59:00 Outpatient EL HUH CARMELA MDA MDA [id number] [facility] 2023-04-21 10:34:08 2023-04-21 23:59:00 Outpatient EL HENRI CARMELA MDA MDA [id number] [facility] 2023-04-21 09:19:17 2023-04-21 10:33:00 Outpatient EL HENRI CARMELA MDA MDA [id number] [facility] 2023-04-21 09:19:17 2023-04-21 10:33:00 Outpatient EL HENRI CARMELA MDA MDA [id number] [facility] 2023-04-01 10:00:00 2023-04-01 23:59:00 Outpatient EL HENRI CARMELA MDA MDA [id number] [facility] 2023-04-01 11:04:40 2023-04-01 12:28:22 Outpatient EL ANSHUL BANGHAD MDA MDA [id number] [facility] 2023-04-01 09:32:13 2023-04-01 09:59:00 Outpatient EL BANGANSHULHAD MDA MDA [id number] [facility] 2023-03-25 10:00:00 2023-03-25 23:59:00 Outpatient EL HENRI CARMELA MDA MDA [id number] [facility] 2023-03-11 09:55:25 2023-03-11 23:59:00 Outpatient EL HUH CARMELA MDA MDA [id number] [facility] 2023-02-25 09:55:47 2023-02-25 23:59:00 Outpatient EL HUH CARMELA MDA MDA [id number] [facility] 2023-02-18 09:50:49 2023-02-18 23:59:00 Outpatient EL CARMELA ÁLVAREZ MDA MDA [id number] [facility] 2023-02-13 06:51:41 2023-02-13 23:59:00 Outpatient EL CARMELA ÁLVAREZ MDA MDA [id number] [facility] 2023-02-07 06:58:03 2023-02-07 06:58:03 Outpatient EL JANNET BANG MDA MDA [id number] [facility] 2023-02-04 10:45:33 2023-02-04 23:59:00 Outpatient EL CARMELA ÁLVAREZ MDA MDA [id number] [facility] 2023-01-28 11:00:00 2023-01-28 23:59:00 Outpatient EL CARMELA ÁLVAREZ MDA MDA [id number] [facility] 2023-01-21 09:46:53 2023-01-21 23:59:00 Outpatient EL CARMELA ÁLVAREZ MDA MDA [id number] [facility] 2023-01-17 08:45:00 2023-01-17 23:59:00 Outpatient EL SHIRLEY MILLER MDA MDA [id number] [facility] 2023-01-17 10:51:24 2023-01-17 11:50:54 Outpatient EL CAMACHO COONEY MDA MDA [id number] [facility] 2023-01-17 09:36:42 2023-01-17 09:36:42 Outpatient EL ROSALEE MILLERUR MDA MDA [id number] [facility] 2023-01-17 07:59:04 2023-01-17 08:44:00 Outpatient EL CARMELA ÁLVAREZ MDA MDA [id number] [facility] 2022-12-31 11:00:00 2022-12-31 23:59:00 Outpatient EL YOLA ÁLVAREZY MDA MDA [id number] [facility] 2022-12-20 09:16:27 2022-12-20 23:59:00 Outpatient EL LAURI JANSEN MDA MDA [id number] [facility] 2022-12-19 09:31:31 2022-12-19 23:59:00 Outpatient EL RAFAEL ANDRESHEL MDA MDA [id number] [facility] 2022-12-19 09:49:13 2022-12-19 10:01:54 Outpatient EL JENNIFFER ANDRES MDA MDA [id number] [facility] 2022-12-19 08:33:11 2022-12-19 09:30:00 Outpatient EL JANNET BANG MDA MDA [id number] [facility] 2022-12-19 07:51:58 2022-12-19 08:32:00 Outpatient EL JAME OLIVAS MDA MDA [id number] [facility] 2022-12-17 09:41:25 2022-12-17 23:59:00 Outpatient EL CARMELA ÁLVAREZ MDA MDA [id number] [facility] 2022-12-04 09:00:00 2022-12-04 23:59:00 Outpatient CARMELA BETTENCOURT MDA MDA [id number] [facility] 2022-11-27 11:42:32 2022-11-27 12:03:51 Outpatient EL JANNETHFLAKITAMJ Ericka MDA MDA [id number] [facility] 2022-11-20 09:00:00 2022-11-20 23:59:00 Outpatient CARMELA BETTENCOURT MDA MDA [id number] [facility] 2022-11-14 10:30:50 2022-11-14 23:59:00 Outpatient CARMELA BETTENCOURT MDA MDA [id number] [facility] 2022-11-14 08:46:34 2022-11-14 10:02:04 Outpatient EL TORI VALENTINE MDA MDA [id number] [facility] 2022-11-07 10:00:00 2022-11-07 23:59:00 Outpatient CARMELA BETTENCOURT MDA MDA [id number] [facility] 2022-11-04 08:19:42 2022-11-04 08:19:42 Outpatient TORI COBURN MDA MDA [id number] [facility] 2022-11-04 08:04:13 2022-11-04 08:15:09 Outpatient EL TORI VALENTINE MDA MDA [id number] [facility] 2022-10-28 10:17:13 2022-10-28 11:38:23 Outpatient EL SHIRLEY MILLER MDA MDA [id number] [facility] 2022-10-17 09:55:50 2022-10-17 23:59:00 Outpatient EL CARMELA ÁLVAREZ MDA MDA [id number] [facility] 2022-10-07 12:30:26 2022-10-07 23:59:00 Outpatient EL CARMELA ÁLVAREZ MDA MDA [id number] [facility] 2022-10-02 08:00:00 2022-10-02 23:59:00 Outpatient EL CARMELA ÁLVAREZ MDA MDA [id number] [facility] 2022-10-02 09:17:18 2022-10-02 11:13:14 Outpatient EL BHAVIN HERNANDES MDA MDA [id number] [facility] 2022-09-25 09:29:39 2022-09-25 23:59:00 Outpatient EL CARMELA ÁLVAREZ MDA MDA [id number] [facility] 2022-09-19 11:34:45 2022-09-19 23:59:00 Outpatient EL EVERETTE VALENZUELA MDA MDA [id number] MD [facility] 2022-09-19 11:21:25 2022-09-19 11:33:00 Outpatient EL YURI HARO MDA MDA [id number] [facility] 2022-09-19 09:48:12 2022-09-19 11:20:00 Outpatient EL CARMELA ÁLVAREZ MDA MDA [id number] [facility] 2022-09-05 12:19:15 2022-09-05 23:59:00 Outpatient EL HENRI CARMELA MDA MDA [id number] [facility] 2022-09-05 10:44:38 2022-09-05 12:18:00 Outpatient EL HENRI CARMELA MDA MDA [id number] [facility] 2022-08-23 11:00:00 2022-08-23 23:59:00 Outpatient EL HENRI CARMELA MDA MDA [id number] [facility] 2022-08-13 09:00:00 2022-08-13 23:59:00 Outpatient EL CARMELA ÁLVAREZ MDA MDA [id number] [facility] 2022-08-13 08:10:47 2022-08-13 08:10:47 Outpatient EL EVERETTE VALENZUELA MDA MDA [id number] [facility] 2022-08-01 10:48:55 2022-08-01 23:59:00 Outpatient EL BANGJANNET SALGADO MDA MDA [id number] [facility] 2022-07-25 10:55:07 2022-07-25 23:59:00 Outpatient EL BANG, NUHAD MDA MDA [id number] [facility] 2022-07-11 11:00:00 2022-07-11 23:59:00 Out[facility]ANNET [id number] [facility] 10:24:15 2022-07-11 10:59:00 Outpatient EL RICKY IS, EFSTRATIOS MDA [facility] [id number] [facility] 08:30:00 2022-07-11 08:30:00 Outpatient EL KOUTROUMPDIRK IS, EFSTRATIOS MDA MDA [id number] [facility]11 08:30:00 2022-07-11 08:30:00 Outpatient EL TUSHARUTRMARTAMPDIRK IS, EFSTRATIOS MDA MDA [id number] [facility]11 08:00:00 2022-07-11 08:29:00 Outpatient EL KOUTROUMPDIRK IS, EFSTRATIOS MDA [facility] [id number] [facility]11 06:45:28 2022-07-11 07:59:00 Outpatient EL KOUTROUMPAK IS, EFSTRATIOS MDA MDA [id number] [facility] 2022-06-27 12:30:00 2022-06-27 23:59:00 Outpatient EL BANG, NUHAD MDA MDA [id number] [facility] 2022-06-25 09:00:00 2022-06-25 23:59:00 Outpatient EL MILAN OSUNA MDA MDA [id number] [facility] 2022-06-25 08:00:00 2022-06-25 08:59:00 Outpatient EL MILAN OSUNA MDA MDA [id number] [facility] 2022-06-21 14:02:22 2022-06-21 14:28:40 Outpatient EL WING CORRAL MDA MDA [id number] [facility] 2022-06-20 12:59:27 2022-06-20 23:59:00 Outpatient EL JANNET BANG MDA MDA [id number] [facility] 2022-06-20 11:20:00 2022-06-20 12:58:00 Outpatient CARMELA BETTENCOURT MDA MDA [id number] [facility] 2022-05-31 14:52:13 2022-05-31 23:59:00 Outpatient SHIRLEY HENRIYOLAY MDA MDA [id number] [facility] 2022-05-30 08:49:18 2022-05-30 10:20:34 Outpatient EL MILAN OSUNA MDA MDA [id number] [facility] 2022-05-23 10:34:10 2022-05-23 23:59:00 Outpatient CARMELA BETTENCOURT MDA MDA [id number] [facility] 2022-05-17 08:00:00 2022-05-17 23:59:00 Outpatient EL CHAUNCEY HAROEricka MDA MDA [id number] [facility] 2022-05-09 10:00:00 2022-05-09 23:59:00 Outpatient SHIRLEY HENRI CARMELA MDA MDA [id number] [facility] 2022-05-09 11:05:02 2022-05-09 12:30:16 Outpatient TORI COBURN MDA MDA [id number] [facility] 2022-05-08 08:15:00 2022-05-08 23:59:00 Outpatient TORI COBURN MDA MDA [id number] [facility] 2022-05-08 10:11:05 2022-05-08 12:47:04 Outpatient EL BHAVIN HERNANDES MDA MDA [id number] [facility] 2022-05-08 08:29:43 2022-05-08 08:29:43 Outpatient EL TORI VALENTINE MDA MDA [id number] [facility] 2022-05-02 12:20:42 2022-05-02 23:59:00 Outpatient EL YURI HARO MDA MDA [id number] [facility] 2022-05-02 16:39:39 2022-05-02 16:40:06 Outpatient EL IRVINGRAD BOLTONLA MDA MDA [id number] [facility] 2022-05-02 12:19:25 2022-05-02 12:19:25 Outpatient EL BRETLISAYURI VILLAR MDA MDA [id number] MD [facility] 2022-05-02 10:57:03 2022-05-02 12:18:00 Outpatient EL CARMELA ÁLVAREZ MDA MDA [id number] [facility] 2022-05-02 08:30:00 2022-05-02 10:56:00 Outpatient EL AMINA BARRY MDA MDA [id number] [facility] 2022-04-08 11:00:00 2022-04-08 23:59:00 Outpatient EL CARMELA ÁLVAREZ MDA MDA [id number] [facility] 2022-04-08 09:45:00 2022-04-08 10:59:00 Outpatient EL ROSALEE MILLERUR MDA MDA [id number] MD [facility] 2022-03-28 12:17:24 2022-03-28 23:59:00 Outpatient EL YOLA ÁLVAREZY MDA MDA [id number] MD [facility] 2022-03-22 08:56:14 2022-03-22 23:59:00 Outpatient EL HENRIYOLAY MDA MDA [id number] MD [facility] 2022-03-21 13:22:56 2022-03-21 23:59:00 Outpatient EL YOLA ÁLVAREZY MDA MDA [id number] [facility] 2022-03-21 14:46:21 2022-03-21 16:54:39 Outpatient EL ANGELIA YAP MDA MDA [id number] [facility] 2022-03-21 12:37:24 2022-03-21 13:21:00 Outpatient EL ANGELIA YAP MDA MDA [id number] [facility] 2022-03-06 09:00:00 2022-03-06 23:59:00 Outpatient EL CARMELA ÁLVAREZ MDA MDA [id number] [facility] 2022-02-27 10:56:00 2022-02-27 23:59:00 Outpatient EL CARMELA ÁLVAREZ MDA MDA [id number] [facility] 2022-02-14 09:49:15 2022-02-14 23:59:00 Outpatient EL CARMELA ÁLVAREZ MDA MDA [id number] MD [facility] 2022-02-07 11:00:00 2022-02-07 23:59:00 Outpatient EL CARMELA ÁLVAREZ MDA MDA [id number] MD [facility] 2022-01-28 09:36:57 2022-01-28 20:29:29 Outpatient EL SHIRLEY MILLER MDA MDA [id number] MD [facility] 2022-01-09 13:27:24 2022-01-09 23:59:00 Outpatient EL CARMELA ÁLVAREZ MDA MDA [id number] MD [facility] 2022-01-09 14:07:29 2022-01-09 15:48:41 Outpatient EL CAMACHO COONEY MDA MDA [id number] [facility] 2021-12-28 12:21:58 2021-12-28 23:59:00 Outpatient EL CARMELA ÁLVAREZ MDA MDA [id number] [facility] 2021-12-28 10:00:00 2021-12-28 12:20:00 Outpatient EL KAYE NUNEZ MDA MDA [id number] [facility] 2021-12-21 10:55:06 2021-12-21 23:59:00 Outpatient EL HENRI CARMELA MDA MDA [id number] [facility] 2021-12-13 10:59:39 2021-12-13 23:59:00 Outpatient EL HENRI CARMELA MDA MDA [id number] [facility] 2021-12-07 11:00:00 2021-12-07 23:59:00 Outpatient EL CARMELA ÁLVAREZ MDA MDA [id number] [facility] 2021-12-07 09:49:10 2021-12-07 09:49:10 Outpatient EL ANGELIA YPA MDA MDA [id number] [facility] 2021-11-30 11:32:54 2021-11-30 23:59:00 Outpatient EL ANGELIA YAP MDA MDA [id number] [facility] 2021-11-30 09:00:00 2021-11-30 11:31:00 Outpatient EL AMINA BARRY MDA MDA [id number] [facility] 2021-11-14 13:03:42 2021-11-14 23:59:00 Outpatient EL CARMELA ÁLVAREZ MDA MDA [id number] [facility] 2021-11-13 10:54:23 2021-11-13 11:53:25 Outpatient EL VALENTINE TORI MDA MDA [id number] [facility] 2021-11-07 09:52:16 2021-11-07 10:29:55 Outpatient EL JANNETH FLAKITAMJ Barnett MDA MDA [id number] MD [facility] 2021-11-07 04:55:00 2021-11-07 04:55:00 Outpatient [facility] [id number] [facility] 2021-11-06 11:07:40 2021-11-06 11:07:40 Outpatient EL JANNET BANG MDA MDA [id number] [facility] 2021-11-06 10:56:00 2021-11-06 10:56:00 Outpatient [facility] [id number] [facility] 2021-11-06 00:00:00 2021-11-06 00:00:00 Outpatient Maryanne Francis [facility] [id number] 2021-11-06 00:00:00 2021-11-06 00:00:00 Maryanne Francis, [employer]: [address], [address], [place] [address] , Ph. [phone] [facility] - [facility]* [id number] [facility] 2021-11-05 09:30:00 2021-11-05 23:59:00 Outpatient TORI COBURN MDA MDA [id number] [facility] 2021-11-05 11:40:00 2021-11-05 11:40:00 Outpatient [facility] [id number] [facility] 2021-11-05 10:11:42 2021-11-05 10:11:42 Outpatient TORI COBURN MDA MDA [id number] [facility] 2021-11-05 10:11:20 2021-11-05 10:11:20 Outpatient TORI COBURN MDA MDA [id number] [facility] 2021-10-31 08:48:28 2021-10-31 23:59:00 Outpatient EL HENRI, CARMELA MDA MDA [id number] [facility] 2021-10-25 11:00:00 2021-10-25 23:59:00 Outpatient EL HUH, CARMELA MDA MDA [id number] [facility] 2021-10-18 11:00:00 2021-10-18 23:59:00 Outpatient EL HUH, CARMELA MDA MDA [id number] [facility] 2021-10-04 09:43:54 2021-10-04 23:59:00 Outpatient EL HUH, CARMELA MDA MDA [id number] [facility] 2021-09-05 10:37:50 2021-09-05 23:59:00 Outpatient EL HUH, CARMELA MDA MDA [id number] [facility] 2021-08-30 10:34:55 2021-08-30 23:59:00 Outpatient EL HUH, CARMELA MDA MDA [id number] [facility] 2021-08-23 08:50:58 2021-08-23 23:59:00 Outpatient EL HUH, CARMELA MDA MDA [id number] [facility] 2021-08-09 10:38:11 2021-08-09 23:59:00 Outpatient EL HUH, CARMELA MDA MDA [id number] [facility] 2021-08-02 06:46:00 2021-08-02 10:56:00 Outpatient EL FLOR LAGUNAS MDA Hector/Hep/Nu t [id number] [facility] 2021-08-01 08:20:00 2021-08-01 23:59:00 Outpatient EL CARMELA ÁLVAREZ MDA MDA [id number] [facility] 2021-08-01 11:36:40 2021-08-01 11:41:34 Outpatient EL BANGJANNET SALGADO MDA MDA [id number] [facility] 2021-08-01 09:50:42 2021-08-01 11:17:27 Outpatient EL LAURI JANSEN MDA MDA [id number] [facility] 2021-08-01 08:02:05 2021-08-01 08:02:05 Outpatient EL JANNET BANG MDA MDA [id number] [facility] 2021-07-31 10:54:38 2021-07-31 11:17:01 Outpatient EL TORI VALENTINE MDA MDA [id number] [facility] 2021-07-20 09:29:00 2021-07-20 15:41:00 Outpatient EL CARMELA ÁLVAREZ MDA Anesth [id number] [facility] 2021-07-19 10:12:36 2021-07-19 23:59:00 Outpatient EL CARMELA ÁLVAREZ MDA MDA [id number] [facility] 2021-07-19 12:10:19 2021-07-19 15:32:17 Outpatient EL CARMELA ÁLVAREZ MDA MDA [id number] [facility] 2021-07-19 09:06:56 2021-07-19 09:06:56 Outpatient EL CARMELA ÁLVAREZ MDA MDA [id number] [facility] 2021-07-19 08:33:47 2021-07-19 08:33:47 Outpatient EL BETIJANNET MDA MDA [id number] [facility] 2021-07-09 06:36:56 2021-07-09 23:59:00 Outpatient EL FLOR LAGUNAS MDA MDA [id number] [facility] 2021-07-03 09:50:41 2021-07-03 23:59:00 Outpatient EL CARMELA ÁLVAREZ MDA MDA [id number] [facility] 2021-06-28 10:48:47 2021-06-28 23:59:00 Outpatient EL CARMELA ÁLVAREZ MDA MDA [id number] [facility] 2021-06-27 10:59:40 2021-06-27 11:25:34 Outpatient EL PAULETTE LAGUNASDEANNACARLI A MDA MDA [id number] [facility] 2021-06-19 11:00:00 2021-06-19 23:59:00 Outpatient EL CARMELA ÁLVAREZ MDA MDA [id number] [facility] 2021-06-18 11:27:52 2021-06-18 11:50:47 Outpatient EL WING CORRAL MDA MDA [id number] [facility] 2021-05-31 10:56:40 2021-05-31 23:59:00 Outpatient EL CARMELA ÁLVAREZ MDA MDA [id number] [facility] 2021-05-28 10:36:24 2021-05-28 23:59:00 Outpatient EL CARMELA ÁLVAREZ MDA MDA [id number] [facility] 2021-05-28 09:48:01 2021-05-28 10:35:00 Outpatient EL CARMELA ÁLVAREZ MDA MDA [id number] [facility] 2021-05-24 10:37:10 2021-05-24 23:59:00 Outpatient EL CARMELA ÁLVAREZ MDA MDA [id number] [facility] 2021-05-19 10:38:24 2021-05-19 10:38:24 Outpatient EL JANNET BANG MDA MDA [id number] [facility] 2021-05-08 09:58:04 2021-05-08 23:59:00 Outpatient EL CARMELA ÁLVAREZ MDA MDA [id number] [facility] 2021-05-08 12:07:14 2021-05-08 13:16:57 Outpatient EL MDA MDA [id number] [facility] 2021-05-04 11:12:08 2021-05-04 23:59:00 Outpatient EL MDA MDA [id number] [facility] 2021-05-03 10:00:00 2021-05-03 23:59:00 Outpatient EL CARMELA ÁLVAREZ MDA MDA [id number] [facility] 2021-04-30 15:17:40 2021-04-30 23:59:00 Outpatient EL CARMELA ÁLVAREZ MDA MDA [id number] [facility] 2021-04-27 11:26:37 2021-04-27 11:26:37 Outpatient EL MDA MDA [id number] [facility] 2021-04-27 10:26:47 2021-04-27 10:26:47 Outpatient EL MDA MDA [id number] [facility] 2021-04-26 11:30:00 2021-04-26 23:59:00 Outpatient DESEAN CARY MDA MDA [id number] [facility] 2021-04-26 14:54:48 2021-04-26 14:54:48 Outpatient EL MDA MDA [id number] [facility] 2021-04-26 13:12:34 2021-04-26 14:44:43 Outpatient DESEAN CARY MDA MDA [id number] [facility] 2021-04-26 10:01:12 2021-04-26 12:18:46 Outpatient EL TORI VALENTINE MDA MDA [id number] [facility] 2021-04-23 13:47:31 2021-04-23 23:59:00 Outpatient EL CARMELA ÁLVAREZ MDA MDA [id number] [facility] 2021-04-13 07:54:44 2021-04-13 23:59:00 Outpatient EL CARMELA ÁLVAREZ MDA MDA [id number] [facility] 2021-04-05 09:47:26 2021-04-05 23:59:00 Outpatient EL CARMELA ÁLVAREZ MDA MDA [id number] [facility] 2021-03-22 13:38:17 2021-03-22 14:01:57 Outpatient EL KAYE NUNEZ MDA MDA [id number] [facility] 2021-03-13 11:00:00 2021-03-13 23:59:00 Outpatient EL CARMELA ÁLVAREZ MDA MDA [id number] [facility] 2021-03-08 10:59:50 2021-03-08 23:59:00 Outpatient EL CARMELA ÁLVAREZ MDA MDA [id number] [facility] 2021-03-01 10:55:22 2021-03-01 23:59:00 Outpatient EL CARMELA ÁLVAREZ MDA MDA [id number] [facility] 2021-02-22 12:05:49 2021-02-22 12:41:46 Outpatient EL KAYE NUNEZ MDA MDA [id number] [facility] 2021-02-15 11:00:00 2021-02-15 23:59:00 Outpatient EL CARMELA ÁLVAREZ MDA MDA [id number] [facility] 2021-02-15 09:53:56 2021-02-15 09:53:56 Outpatient EL JANNET BANG MDA MDA [id number] [facility] 2021-02-13 16:57:36 2021-02-13 16:57:36 Outpatient EL DESEAN RIVERA MDA MDA [id number] [facility] 2021-02-08 13:30:00 2021-02-08 23:59:00 Outpatient EL CARMELA ÁLVAREZ MDA MDA [id number] [facility] 2021-01-25 11:00:00 2021-01-25 23:59:00 Outpatient EL CARMELA ÁLVAREZ MDA MDA [id number] [facility] 2021-01-25 10:00:42 2021-01-25 14:14:23 Outpatient EL MARELY, LATIRA MDA MDA [id number] [facility] 2021-01-24 14:23:44 2021-01-24 23:59:00 Outpatient EL HENRI CARMELA MDA MDA [id number] [facility] 2021-01-22 14:51:02 2021-01-23 06:52:43 Outpatient EL MARELY, LATIRA MDA MDA [id number] [facility] 2021-01-18 13:09:21 2021-01-18 23:59:00 Outpatient EL HENRI CARMELA MDA MDA [id number] [facility] 2021-01-17 12:49:16 2021-01-17 14:39:29 Outpatient EL BHAVIN HERNANDES MDA MDA [id number] [facility] 2021-01-11 14:45:30 2021-01-11 23:59:00 Outpatient EL CARMELA ÁLVAREZ MDA MDA [id number] [facility] 2021-01-11 15:38:05 2021-01-11 16:17:35 Outpatient EL ANGELIA YAP MDA MDA [id number] [facility] 2021-01-04 09:34:20 2021-01-04 09:34:20 Outpatient EL ANGELIA YAP MDA MDA [id number] [facility] 2021-01-04 08:22:15 2021-01-04 08:22:15 Outpatient EL ANGELIA YAP MDA MDA [id number] [facility] 2020-12-26 11:00:00 2020-12-26 23:59:00 Outpatient EL ADAN VANEGAS MDA MDA [id number] [facility] 2020-12-26 12:47:55 2020-12-26 12:47:55 Outpatient EL ADAN VANEGAS MDA MDA [id number] [facility] 2020-12-26 10:19:34 2020-12-26 10:19:34 Outpatient EL KAYE NUNEZ MDA MDA [id number] [facility] 2020-12-21 12:29:53 2020-12-21 23:59:00 Outpatient EL CARMELA ÁLVAREZ MDA MDA [id number] [facility] 2020-11-30 12:18:56 2020-11-30 23:59:00 Outpatient EL CARMELA ÁLVAREZ MDA MDA [id number] [facility] 2020-11-27 09:54:39 2020-11-27 23:59:00 Outpatient EL CARMELA ÁLVAREZ MDA MDA [id number] [facility] 2020-11-23 13:24:51 2020-11-23 23:59:00 Outpatient EL CARMELA ÁLVAREZ MDA MDA [id number] [facility] 2020-11-09 10:47:50 2020-11-09 23:59:00 Outpatient EL HENRI CARMELA MDA MDA [id number] [facility] 2020-10-26 11:00:00 2020-10-26 23:59:00 Outpatient CARMELA BETTENCOURT MDA MDA [id number] [facility] 2020-10-26 10:20:00 2020-10-26 10:59:00 Outpatient CARMELA BETTENCOURT MDA MDA [id number] [facility] 2020-10-18 11:36:11 2020-10-18 23:59:00 Outpatient CARMELA BETTENCOURT MDA MDA [id number] [facility] 2020-10-18 13:56:05 2020-10-18 14:41:54 Outpatient EL CAMACHO COONEY MDA MDA [id number] [facility] 2020-10-02 01:48:00 2020-10-02 01:48:00 Outpatient [facility] [id number] [facility] 2020-10-02 01:48:00 2020-10-02 01:48:00 Outpatient [facility]IV [id number] [facility] 2020-09-28 10:00:00 2020-09-28 23:59:00 Outpatient CARMELA BETTENCOURT MDA MDA [id number] [facility] 2020-09-14 11:00:00 2020-09-14 23:59:00 Outpatient CARMELA BETTENCOURT MDA MDA [id number] [facility] 2020-09-09 11:12:10 2020-09-09 14:41:58 Outpatient EL JANNET BANG MDA MDA [id number] [facility] 2020-09-07 08:22:21 2020-09-07 23:59:00 Outpatient SHIRLEY KAYE NUNEZ MDA MDA [id number] [facility] 2020-09-07 06:42:17 2020-09-07 08:21:00 Outpatient CARMELA BETTENCOURT MDA MDA [id number] [facility] 2020-08-31 09:07:33 2020-08-31 09:47:33 Outpatient SHIRLEY KAYE NUNEZ MDA MDA [id number] [facility] 2020-08-19 11:20:35 2020-08-19 11:40:28 Outpatient EL MIHAELA LEBLANC MDA MDA [id number] [facility] 2020-08-09 13:28:25 2020-08-09 23:59:00 Outpatient CARMELA BETTENCOURT MDA MDA [id number] [facility] 2020-08-03 13:30:00 2020-08-03 23:59:00 Outpatient EL CARMELA LÁVAREZ MDA MDA [id number] [facility] 2020-07-20 14:00:00 2020-07-20 23:59:00 Outpatient EL CARMELA ÁLVAREZ MDA MDA [id number] [facility] 2020-07-20 07:58:30 2020-07-20 13:59:00 Outpatient CARMELA BETTENCOURT MDA MDA [id number] [facility] 2020-07-04 11:00:00 2020-07-04 23:59:00 Outpatient EL CARMELA ÁLVAREZ MDA MDA [id number] [facility] 2020-06-26 10:40:13 2020-06-26 15:46:52 Outpatient EL ADAN VANEGAS MDA MDA [id number] [facility] 2020-06-22 14:30:00 2020-06-22 23:59:00 Outpatient EL WING CORRAL MDA MDA [id number] [facility] 2020-06-22 13:30:00 2020-06-22 14:29:00 Outpatient EL CARMELA ÁLVAREZ MDA MDA [id number] [facility] 2020-06-22 10:15:00 2020-06-22 13:29:00 Outpatient EL WING CORRAL MDA MDA [id number] [facility] 2020-06-16 06:33:53 2020-06-16 23:59:00 Outpatient EL CAMACHO COONEY MDA MDA [id number] [facility] 2020-06-16 11:26:56 2020-06-16 11:33:58 Outpatient EL WING CORRAL MDA MDA [id number] [facility] 2020-06-16 06:11:52 2020-06-16 06:32:00 Outpatient EL OLIVIA VANEGASONG MDA MDA [id number] [facility] 2020-06-15 10:46:57 2020-06-15 23:59:00 Outpatient EL HUH, CARMELA MDA MDA [id number] [facility] 2020-06-01 13:30:00 2020-06-01 23:59:00 Outpatient EL HUH, CARMELA MDA MDA [id number] [facility] 2020-05-24 13:26:14 2020-05-24 14:32:33 Outpatient EL CAMACHO COONEY MDA MDA [id number] [facility] 2020-05-23 10:54:16 2020-05-23 23:59:00 Outpatient EL HUH, CARMELA MDA MDA [id number] [facility] 2020-05-18 13:54:00 2020-05-18 23:59:00 Outpatient EL HUH, CARMELA MDA MDA [id number] [facility] 2020-05-09 10:55:05 2020-05-09 23:59:00 Outpatient EL HUH, CARMELA MDA MDA [id number] MD Mine milligan 2020-04-19 08:10:15 2020-04-19 23:59:00 Outpatient EL HUH, CARMELA MDA MDA [id number] MD Mine milligan 2020-04-18 10:52:36 2020-04-18 23:59:00 Outpatient EL HUH, CARMELA MDA MDA [id number] MD Mine milligan 2020-04-11 10:52:36 2020-04-11 23:59:00 Outpatient EL HUH, CARMELA MDA MDA [id number] MD Mine milligan 2020-03-23 00:00:00 2020-03-23 00:00:00 Outpatient EL HUH, CARMELA MDA MDA [id number] MD Mine milligan 2020-03-21 15:00:00 2020-03-21 23:59:00 Outpatient EL HUH, CARMELA MDA MDA [id number] MD Mine milligan 2020-03-16 12:18:47 2020-03-16 15:35:38 Outpatient EL HUH, CARMELA MDA MDA [id number] MD Mine milligan 2020-03-13 13:06:18 2020-03-13 16:08:02 Outpatient EL OH, ADAN MDA MDA [id number] MD Mine milligan 2020-03-10 12:19:54 2020-03-10 23:59:00 Outpatient EL OHADAN MDA MDA [id number] MD Mine milligan 2020-03-09 00:00:00 2020-03-09 00:00:00 Outpatient EL HUH CARMELA MDA MDA [id number] MD Mine milligan 2020-03-02 00:00:00 2020-03-02 00:00:00 Outpatient EL HUH, CARMELA MDA MDA [id number] MD Mine milligan 2020-02-24 11:57:33 2020-02-24 13:12:47 Outpatient EL HUH, CARMELA MDA MDA [id number] MD Mine milligan 2020-02-17 12:13:39 2020-02-18 07:19:42 Outpatient EL HUH, CARMELA MDA MDA [id number] MD Mine milligan 2020-02-10 00:00:00 2020-02-10 00:00:00 Outpatient EL HUH, CARMELA MDA MDA [id number] MD Mine milligan 2020-01-28 15:04:09 2020-01-28 15:04:09 Outpatient PAULETTE HAYSCHRISTINAMJ A MDA MDA [id number] MD Mine milligan 2020-01-26 07:56:53 2020-01-26 23:59:00 Outpatient EL HUH, CARMELA MDA MDA [id number] MD Mine milligan 2020-01-26 00:00:00 2020-01-26 00:00:00 Outpatient EL JANNETH FLAKITAMJ A MDA MDA [id number] MD Mine milligan 2020-01-20 10:50:37 2020-01-20 23:59:00 Outpatient EL HUH, CARMELA MDA MDA [id number] MD Mine milligan 2020-01-13 11:00:00 2020-01-13 23:59:00 Outpatient EL HUH, CARMELA MDA MDA [id number] MD Mine milligan 2019-12-23 10:31:24 2019-12-23 23:59:00 Outpatient EL HUH, CARMELA MDA MDA [id number] MD Mine milligan 2019-09-29 15:15:00 2019-09-29 15:15:00 Outpatient FEMI MILLAN [facility] [id number] [facility] 2019-09-10 10:26:47 2019-09-10 10:26:00 Outpatient O FEMI SEXTON [facility] [id number] [facility] 2016-01-25 13:49:43 2016-01-25 19:27:00 Outpatient FLOR HAYS MDA [facility]/Hep/Nu t [id number] MD Mine milligan 2015-09-27 09:23:36 2015-09-27 15:54:00 Outpatient JANETTE BLANK MDA [facility] [id number] MD Mine milligan
[2024-06-23] MEDS ORDERED: METOCLOPRAMIDE 10 MG/2mL INJ ONE (22:02)
[2024-06-23] MEDS ORDERED: ONDANSETRON 4 MG/2 ML VIAL ONE ×2 (22:02→23:16)
[2024-06-23] MEDS ORDERED: KETOROLAC 30 MG/ML INJ ONE (22:02)
[2024-06-23] MEDS ORDERED: NA CHLORIDE 0.9% 2,000 ML ONE (22:03)
[2024-06-23] MEDS ORDERED: MORPHINE 4 MG/ML SYR ONE (22:03)
[2024-06-23 22:28] LABS: Albumin 4.1 g/dL (3.4-5.0); Anion Gap 11.7 mEq/L (5.0-15.0); Bilirubin Total 0.3 mg/dL (0.2-1.0); Globulin 4.3 g/dL (2.3-3.5); Protein, Total 8.4 g/dL (6.4-8.2)
[2024-06-23 22:30] LABS: Potassium 3.7 mEq/L (3.5-5.1)
[2024-06-23 22:56] LABS: Absolute Lymphocytes (CBC) 0.5 K/uL (0.7-4.9); Absolute Monocytes 0.4 K/uL (0.1-1.3); Absolute Neutrophil 5.9 K/uL (1.8-8.0); Basophils % 0.5 % (0-1.3); Eosinophils % 0.1 % (0-4.4); Hematocrit 36.4 % (36.0-45.0); Hemoglobin 11.9 g/dL (12.0-15.0); MCH 28.2 pg (27.0-35.0); MCHC 32.7 g/dL (32.0-36.0); MCV 86.3 fL (80-100); MPV 9.9 fL (7.6-11.3); Monocytes % 5.2 % (3.3-12.3); Neutrophils % 86.2 % (41.7-73.7); Platelets 218 thou/uL (152-406); RBC Red Blood Cell Count 4.22 M/uL (3.86-4.86); Red Cell Distribution Width 14.5 % (12.1-15.2)
[2024-06-23 23:36] LABS: Specific Gravity 1.013 (1.005-1.030); Sqamous Epithelial <5 /HPF (None Seen); Urine Bacteria None Seen /HPF (<20); Urine Bilirubin NEGATIVE (Negative); Urine Blood Negative (Negative); Urine Clarity Clear (Clear); Urine Color Colorless (Yellow); Urine Culture Reflex Order NOT NEEDED; Urine Glucose 3+ (Negative); Urine Ketones 2+ (Negative); Urine Micro Reflex YN NO BILL MICROSCOPIC; Urine Nitrite NEGATIVE (Negative); Urine Protein 1+ (Negative); Urine RBC <5 /HPF (None Seen); Urine Urobilinogen Normal (Normal); Urine WBC <5 /HPF (<5)
[2024-06-24] MEDS ORDERED: MORPHINE 4 MG/ML SYR ONE (00:01)
[2024-06-24] MEDS ORDERED: methocarbamoL 750 MG TAB ONE (00:01)
[2024-06-24 00:50] LABS: Band Neutrophils 12 % (0-1); Differential Total Cells Count 100; Lymphocytes 6 % (15-42); Monocytes 1 % (0-10); Reactive Lymphocytes 3 %; Segmented Neutrophils 78 % (40-80)
[2024-06-24 00:51] LABS: Blood Morphology Comment NOT SEEN (NOT SEEN); Platelet Estimate ADEQ
--- NOTE | 2024-06-24 01:39 | EDPHYS ---
Physician Documentation [facility] Name: Maynor Marc Age: 59 yrs Sex: Female : 1965 Arrival Date: 06/23/2024 Time: 20:18 Bed 20 Private MD: ED Physician Jonathan Gagnon HPI: 06/23 20:37 This 59 yrs old Other Race Female presents to ER via Unassigned with complaints of sp4 Nausea/Vomiting, PT IS CURRENTLY UNDERGOING CHEMO. 06/24 22:06 59 year old female currently undergoing chemotherapy for breast cancer last sp4 chemotherapy 2 weeks ago presents with headache nausea vomiting body aches.. Historical: - Allergies: 06/23 21:01 No Known Allergies; tm6 - PMHx: 21:01 breast cancer; Diabetes mellitus; Hypertensive disorder; Hypercholesterolemia; tm6 - PSHx: 21:01 double mastectomy; tm6 - Immunization history:: Flu vaccine is not up to date. - Infectious Disease History:: Denies. - Social history:: Smoking status: Patient denies any tobacco usage or history of. - Family history:: not pertinent. ROS: 06/24 22:10 Constitutional: Negative for fever, chills, and weight loss, positive body aches, sp4 positive headache, positive nausea vomiting All other systems are negative, Exam: 22:10 Constitutional: This is a well developed, well nourished patient who is awake, alert, sp4 and in no acute distress. Head/Face: Normocephalic, atraumatic. Eyes: Pupils equal round and reactive to light, extra-ocular motions intact. Lids and lashes normal. Conjunctiva and sclera are not injected. Cornea within normal limits. Periorbital areas with no swelling, redness, or edema. ENT: Nares patent. No nasal discharge, no septal abnormalities noted. Tympanic membranes are normal and external auditory canals are clear. Oropharynx with no redness, swelling, or masses, exudates, or evidence of obstruction, uvula midline. Mucous membranes moist. Neck: Trachea midline, no thyromegaly or masses palpated, and no cervical lymphadenopathy. Supple, full range of motion without nuchal rigidity, or vertebral point tenderness. Chest/axilla: Normal chest wall appearance and motion. Nontender with no deformity. No lesions are appreciated. Cardiovascular: Regular rate and rhythm with a normal S1 and S2. No gallops, murmurs, or rubs. Normal PMI, no JVD. No pulse deficits. Respiratory: Lungs have equal breath sounds bilaterally, clear to auscultation and percussion. No rales, rhonchi or wheezes noted. No increased work of breathing, no retractions or nasal flaring. Abdomen/GI: Soft, with normal bowel sounds. No distension or tympany. No guarding or rebound. No evidence of tenderness throughout. Back: No spinal tenderness. No costovertebral tenderness. Skin: Warm, dry with normal turgor. Normal color with no rashes, no lesions, and no evidence of cellulitis. MS/ Extremity: Pulses equal, no cyanosis. Neurovascular intact. Full, normal range of motion. Neuro: Awake and alert, GCS 15, oriented to person, place, time, and situation. Cranial nerves II-XII grossly intact. Motor strength 5/5 in all extremities. Sensory grossly intact. Psych: Awake, alert, with orientation to person, place and time. Behavior, mood, and affect are within normal limits Vital Signs: 06/23 20:59 BP 171 / 93; Pulse 91; Resp 20; Temp 99.4(O); Pulse Ox 100% on R/A; MAP 115 mmHg; tm6 Weight 111.13 kg; Height 5 ft. 4 in. ; Pain 10/10; 23:01 BP 154 / 77; Pulse 93; Resp 18; Pulse Ox 98% on R/A; Pain 8/10; rg5 06/24 00:30 BP 140 / 75; Pulse 88; Resp 18; Pulse Ox 97% on R/A; Pain 3/10; rg5 01:30 BP 139 / 73; Pulse 85; Resp 18; Temp 98; Pulse Ox 98% on R/A; Pain 0/10; rg5 06/23 20:59 Body Mass Index 42.05 (111.13 kg, 162.56 cm) tm6 06/23 20:59 Pain Scale: Adult tm6 23:01 Pain Scale: Adult rg5 06/24 00:30 Pain Scale: Adult rg5 01:30 Pain Scale: Adult rg5 [place] Coma Score: 22:10 Eye Response: spontaneous(4). Motor Response: obeys commands(6). Verbal Response: sp4 oriented(5). Total: 15. MDM: 06/23 20:37 Medical Screening Exam initiated 4 06/24 22:10 Differential diagnosis: Nonspecific abd pain, gastritis, viral gastroenteritis, sp4 gastroenteritis. Data reviewed: vital signs, nurses notes, lab test result(s), radiologic studies. 22:11 Consideration of Admission/Observation Escalation of care including sp4 admission/observation considered. 22:12 ED course: Patient improved significantly after medications and IV fluids. Stable for sp4 discharge home.. 06/23 20:37 Order name: CBC with Diff; Complete Time: 01:34 sp4 06/23 20:37 Order name: CMP; Complete Time: 23:08 sp4 06/23 20:37 Order name: Lipase; Complete Time: 23:08 [facility] 06/23 21:12 Order name: Influenza Screen (a \T\ B); Complete Time: 01:34 sp4 06/23 21:12 Order name: Urinalysis W/Microscopic; Complete Time: 23:44 4 06/23 23:00 Order name: Manual Differential; Complete Time: :34 EDMS 06/23 20:37 Order name: IV Saline Lock; Complete Time: 22:29 sp4 06/23 20:37 Order name: Labs collected and sent; Complete Time: 22:29 sp4 Administered Medications: 06/23 22:10 Drug: NS 0.9% IV 1000 ml IV at 1 bolus Per protocol; to be given as a bolus over 60 rg5 minutes Route: IV; Rate: 1 bolus; Site: left forearm; 06/24 00:00 Follow up: IV Status: Completed infusion; IV Intake: 1000ml rg5 06/23 22:10 Drug: NS 0.9% IV 1000 ml IV at 1000 ml once; to be given as a bolus over 60 minutes rg5 Route: IV; Rate: 1000 ml; Site: left forearm; 23:00 Follow up: IV Status: Completed infusion; IV Intake: 1000ml rg5 22:10 Drug: Ondansetron IVP 8 mg IVP once; over 2 minutes Route: IVP; Site: left forearm; rg5 23:42 Follow up: Response: No adverse reaction rg5 22:10 Drug: Ketorolac IVP 30 mg IVP once Route: IVP; Site: left forearm; rg5 23:42 Follow up: Response: No adverse reaction; Pain is decreased rg5 22:15 Drug: morphine IVP or IV 4 mg IVP once over 4 mins Route: IVP; Infused Over: 4 mins; rg5 Site: left forearm; 23:42 Follow up: Response: No adverse reaction; Pain is decreased rg5 22:15 Drug: metoCLOPramide IVP 10 mg IVP once; over 1 to 2 minutes Route: IVP; Site: left rg5 forearm; 23:42 Follow up: Response: No adverse reaction; Pain is decreased rg5 23:55 Drug: morphine IVP or IV 4 mg IVP once over 4 mins Route: IVP; Infused Over: 4 mins; rg5 Site: left wrist; 06/24 00:11 Follow up: Response: No adverse reaction rg5 06/23 23:55 Drug: Methocarbamol PO 1500 mg PO once Route: PO; rg5 06/24 00:11 Follow up: Response: No adverse reaction rg5 Disposition Summary: 06/24/24 01:39 Discharge Ordered Notes: Location: Home sp4 Problem: new sp4 Symptoms: have improved sp4 Condition: Stable sp4 Diagnosis - Acute viral gastroenteritis, acute vomiting, acute headache sp4 Followup: sp4 - With: Private Physician - When: 7 - 10 days - Reason: Recheck today's complaints Discharge Instructions: - Discharge Summary Sheet sp4 - Clear Liquid Diet, Adult, Inur-bo-Alnh sp4 Forms: - Patient Portal Instructions sp4 Prescriptions: - ondansetron 8 mg Oral Tablet,disintegrating - take 1 tablet ORAL route every 6 hours PRN nausea; 30 tablet; Refills: 0, sp4 Product Selection Permitted Signatures: Dispatcher [employer] Jonathan Salazar MD MD sp4 Irvin Schilling RN RN tm6 Jamil Mccann RN RN rg5 Corrections: (The following items were deleted from the chart) 06/23 21:13 21:13 Urinalysis W/Microscopic+U.LAB.BRZ ordered. EDMS EDMS
--- NOTE | 2024-06-24 01:39 | ER ---
Nurse's Notes [facility] Name: Maynor Marc Age: 59 yrs Sex: Female : 1965 Arrival Date: 06/23/2024 Time: 20:18 Bed 20 Private MD: Diagnosis: Acute viral gastroenteritis, acute vomiting, acute headache Presentation: 06/23 21:00 Chief complaint: Patient states: last night I started with n/v, severe headache. tm6 Coronavirus screen: Client denies travel out of the [place] in the last 14 days. Ebola Screen: Patient negative for fever greater than or equal to 101.5 degrees Fahrenheit, and additional compatible Ebola Virus Disease symptoms Patient denies exposure to infectious person. Patient denies travel to an Ebola-affected area in the 21 days before illness onset. No symptoms or risks identified at this time. Initial Sepsis Screen: Does the patient meet any 2 criteria? No. Patient's initial sepsis screen is negative. Does the patient have a suspected source of infection? No. Patient's initial sepsis screen is negative. Risk Assessment: Do you want to hurt yourself or someone else? Patient reports no desire to harm self or others. Onset of symptoms was June 22, 2024. 21:00 Method Of Arrival: Ambulatory tm6 21:00 Acuity: SHEILA 3 tm6 Triage Assessment: 21:01 General: Appears distressed, uncomfortable, Behavior is cooperative. Pain: Complains of tm6 pain in head Pain currently is 10 out of 10 on a pain scale. Pain began 1 day ago. EENT: No signs and/or symptoms were reported regarding the EENT system. Neuro: Level of Consciousness is awake, alert, obeys commands, Oriented to person, place, time, situation, Reports headache since early this morning. Cardiovascular: Patient's skin is warm and dry. Respiratory: Airway is patent Respiratory effort is even, unlabored, Respiratory pattern is regular, symmetrical. GI: Reports nausea, vomiting. : No signs and/or symptoms were reported regarding the genitourinary system. Derm: No signs and/or symptoms reported regarding the dermatologic system. Musculoskeletal: No signs and/or symptoms reported regarding the musculoskeletal system. Historical: - Allergies: 21:01 No Known Allergies; tm6 - PMHx: 21:01 breast cancer; Diabetes mellitus; Hypertensive disorder; Hypercholesterolemia; tm6 - PSHx: 21:01 double mastectomy; tm6 - Immunization history:: Flu vaccine is not up to date. - Infectious Disease History:: Denies. - Social history:: Smoking status: Patient denies any tobacco usage or history of. - Family history:: not pertinent. Screenin:10 [facility] ED Fall Risk Assessment (Adult) History of falling in the last 3 months, rg5 including since admission No falls in past 3 months (0 pts) Confusion or Disorientation No (0 pts) Intoxicated or Sedated No (0 pts) Impaired Gait No (0 pts) Mobility Assist Device Used No (0 pt) Altered Elimination No (0 pt) Score/Fall Risk Level 0 - 2 = Low Risk Oriented to surroundings, Maintained a safe environment, Hourly rounding (assess needs \\T\\ fall precautionary measures) done. Abuse screen: Denies threats or abuse. Nutritional screening: No deficits noted. Tuberculosis screening: No symptoms or risk factors identified. Assessment: 21:10 General: Appears in no apparent distress. Behavior is calm, cooperative, appropriate rg5 for age. 21:10 Pain: Complains of pain in HEAD Pain currently is 10 out of 10 on a pain scale. Quality rg5 of pain is described as aching. Neuro: Level of Consciousness is awake, alert, obeys commands, Oriented to person, place, time, Reports headache that is the "worst ever". Cardiovascular: Patient's skin is warm and dry. Rhythm is sinus rhythm. Respiratory: Airway is patent Trachea midline Respiratory effort is even, unlabored. GI: Abdomen is round obese, Reports nausea, vomiting. : No signs and/or symptoms were reported regarding the genitourinary system. EENT: No deficits noted. Derm: Skin is intact, Skin is dry, Skin is normal, Skin temperature is warm. Musculoskeletal: Circulation, motion, and sensation intact. Range of motion: intact in all extremities. 22:30 Reassessment: Patient and/or family updated on plan of care and expected duration. Pain rg5 level reassessed. Patient is alert, oriented x 3, equal unlabored respirations, skin warm/dry/pink. 23:20 Reassessment: Patient and/or family updated on plan of care and expected duration. Pain rg5 level reassessed. Patient is alert, oriented x 3, equal unlabored respirations, skin warm/dry/pink. 06/24 00:46 Reassessment: Patient and/or family updated on plan of care and expected duration. Pain rg5 level reassessed. Patient is alert, oriented x 3, equal unlabored respirations, skin warm/dry/pink. Patient states feeling better. Patient states symptoms have improved. Vital Signs: 06/23 20:59 BP 171 / 93; Pulse 91; Resp 20; Temp 99.4(O); Pulse Ox 100% on R/A; MAP 115 mmHg; tm6 Weight 111.13 kg; Height 5 ft. 4 in. ; Pain 10/10; 23:01 BP 154 / 77; Pulse 93; Resp 18; Pulse Ox 98% on R/A; Pain 8/10; rg5 06/24 00:30 BP 140 / 75; Pulse 88; Resp 18; Pulse Ox 97% on R/A; Pain 3/10; rg5 01:30 BP 139 / 73; Pulse 85; Resp 18; Temp 98; Pulse Ox 98% on R/A; Pain 0/10; rg5 06/23 20:59 Body Mass Index 42.05 (111.13 kg, 162.56 cm) tm6 06/23 20:59 Pain Scale: Adult tm6 23:01 Pain Scale: Adult rg5 06/24 00:30 Pain Scale: Adult rg5 01:30 Pain Scale: Adult rg5 [place] Coma Score: 22:10 Eye Response: spontaneous(4). Motor Response: obeys commands(6). Verbal Response: sp4 oriented(5). Total: 15. ED Course: 06/23 20:21 Patient arrived in ED. jj6 20:37 Jonathan Gagnon MD is Attending Physician. sp4 21:01 Triage completed. tm6 21:01 Arm band placed on right wrist. tm6 21:10 Patient has correct armband on for positive identification. Placed in gown. Bed in low rg5 position. Call light in reach. Side rails up X 1. Client placed on continuous cardiac and pulse oximetry monitoring. NIBP monitoring applied. manager monitoring on. Pulse ox on. NIBP on. Door closed. Noise minimized. Warm blanket given. Verbal reassurance given. 21:10 No provider procedures requiring assistance completed. Inserted saline lock: 24 gauge rg5 in left wrist, using aseptic technique. Blood collected. Flushed with 10 mL NS. 21:52 Jamil Mccann, RN is Primary Nurse. rg5 06/24 01:51 Provided Education on: POST ER CARE. rg5 01:51 IV discontinued, bleeding controlled, No redness/swelling at site. Pressure dressing rg5 applied. Administered Medications: 06/23 22:10 Drug: NS 0.9% IV 1000 ml IV at 1 bolus Per protocol; to be given as a bolus over 60 rg5 minutes Route: IV; Rate: 1 bolus; Site: left forearm; 06/24 00:00 Follow up: IV Status: Completed infusion; IV Intake: 1000ml rg5 06/23 22:10 Drug: NS 0.9% IV 1000 ml IV at 1000 ml once; to be given as a bolus over 60 minutes rg5 Route: IV; Rate: 1000 ml; Site: left forearm; 23:00 Follow up: IV Status: Completed infusion; IV Intake: 1000ml rg5 22:10 Drug: Ondansetron IVP 8 mg IVP once; over 2 minutes Route: IVP; Site: left forearm; rg5 23:42 Follow up: Response: No adverse reaction rg5 22:10 Drug: Ketorolac IVP 30 mg IVP once Route: IVP; Site: left forearm; rg5 23:42 Follow up: Response: No adverse reaction; Pain is decreased rg5 22:15 Drug: morphine IVP or IV 4 mg IVP once over 4 mins Route: IVP; Infused Over: 4 mins; rg5 Site: left forearm; 23:42 Follow up: Response: No adverse reaction; Pain is decreased rg5 22:15 Drug: metoCLOPramide IVP 10 mg IVP once; over 1 to 2 minutes Route: IVP; Site: left rg5 forearm; 23:42 Follow up: Response: No adverse reaction; Pain is decreased rg5 23:55 Drug: morphine IVP or IV 4 mg IVP once over 4 mins Route: IVP; Infused Over: 4 mins; rg5 Site: left wrist; 06/24 00:11 Follow up: Response: No adverse reaction rg5 06/23 23:55 Drug: Methocarbamol PO 1500 mg PO once Route: PO; rg5 06/24 00:11 Follow up: Response: No adverse reaction rg5 Medication: 06/23 21:10 VIS not applicable for this client. rg5 Intake: 23:00 IV: 1000ml; Total: 1000ml. rg5 06/24 00:00 IV: 1000ml; Total: 2000ml. rg5 Outcome: 01:39 Discharge ordered by . sp4 01:51 Discharged to home ambulatory, rg5 01:51 Condition: stable 01:51 Discharge instructions given to patient, Instructed on discharge instructions, follow up and referral plans. Demonstrated understanding of instructions, follow-up care, medications, Prescriptions given X 1, 01:53 Patient left the ED. rg5 Signatures: Caitlin Soliz Sergey, MD MD sp4 Irvin Schilling RN RN tm6 Jamil Mccann RN RN rg5
[2024-06-24 02:24] VITALS: BP 139/73; TEMP 98; O2SAT 98
== END 2024-06-24 01:53 | disposition home or self-care (01) ==
LOC: ER 20:18
DX: A08.39 Other viral enteritis (principal); R11.2 Nausea with vomiting, unspecified; R51.9 Headache, unspecified; Z85.3 Personal history of malignant neoplasm of breast; Z92.21 Personal history of antineoplastic chemotherapy
CPT/HCPCS: 85025; 81001; 36415; 83690; 80053; 87804 ×2; 99285; J2765; J2405 ×2; J7030